=== PATIENT | male | born 1980 | race Caucasian/White ===

== ENCOUNTER 2023-02-04 19:52 | Inpatient (IN) | payer OTHER, SELFPAY ==
[2023-02-04 20:53] VITALS: BMI 35.0
--- NOTE | 2023-02-04 21:43 | PC.NURSE ---
Pt submitted a Three Day Notice on Tuesday02/04/2023 up on Tuesday02/09/2023.
[2023-02-04] MEDS: oxyCODONE HCl Immed Release 5 MG TABLET PO (22:26)
[2023-02-04] MEDS: Acetaminophen 325 MG TABLET 650 MG PO (22:27)
[2023-02-04] MEDS: Nicotine Polacrilex 2 MG GUM BUCCAL (22:27)
[2023-02-04] MEDS: traZODone HCL 50 MG TABLET PO (22:31)
--- NOTE | 2023-02-05 00:18 | PC.ADMIT ---
Addendum entered by Lili Mccarthy RN 02/05/23 00:43: Patient denied any SI, HI, AH or VH at this time. Original Note: Juliette is a 42 year old Tunisian speaking single male admitted as a CV admission to at 200402/04/23 and placed on 15 minute safety checks. Patient was a transfer from [facility] where he was being treated for cellulitis and patient also reported substance use and SI with a plan to jump off a bridge. Patient has a long history of substance abuse, treatment facility admissions and [facility] admissions. Patient arrived on the unit highly agitated and said I want to punch someone . Patient said he feels some withdrawals and did not feel like answering many of the admission questions. He was given Klonopin 2 mg po with positive effect and was able to eat a snack, take night meds and go to bed. Safety tool will need to be done and legals will need to be signed. Patient did sign a 3 day notice 02/04/23 that will be up TuesdayFebruary 10. Will monitor for patient for withdrawals.
[2023-02-05 07:28] LABS: Alanine Aminotransferase 31 U/L (0-40); Albumin Level 3.4 g/dL (3.5-5.0); Alkaline Phosphatase 68 U/L (39-117); Anion Gap 14 (12-20); Aspartate Amino Transferase 35 U/L (5-37); Bilirubin Total 0.3 mg/dL (0.0-1.0); Blood Urea Nitrogen 10 mg/dL (9-16); Calcium 8.6 mg/dL (8.4-10.2); Carbon Dioxide 21 mmol/L (22-29); Chloride 110 mmol/L (96-108); Cholesterol 157 mg/dL; Creatinine Clr Calc Pharmacy 142.4; Estimated Glomerular Filt Rate > 60; Glucose Fasting 110 mg/dL (60-99); HDL Cholesterol 23 mg/dL; LDL Cholesterol Calculated 90 mg/dl; Potassium 4.1 mmol/L (3.3-5.1); Sodium 141 mmol/L (135-145); Triglycerides 223 mg/dL
[2023-02-05] MEDS: clonazePAM 1 MG TABLET 2 MG PO (08:43)
[2023-02-05] MEDS: Buprenorphine/Naloxone 8/2 mg TAB.SUBL 1 TAB SUBLINGUAL (08:43)
[2023-02-05] MEDS: buPROPion HCl XL 300 MG TAB.ER.24H PO (08:43)
[2023-02-05] MEDS: Gabapentin 400 MG CAPSULE 800 MG PO ×2 (08:43→16:18)
[2023-02-05 08:47] VITALS: BP 193/102; PULSE 77; RESP 14; TEMP 36.6; O2SAT 98
--- NOTE | 2023-02-05 09:04 | P.HPPS_ITS ---
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 He denies having been here before. He has history of IV drug use, primarily cocaine but also has opiate use disorder, alcohol use disorder and possible mood disorder. He tested positive for buprenorphine, fentanyl, barbit urates and benzodiazepines and cocaine. He had gone to the emergency room stating that if he was not hospitalize he would go out and kill himself by jumping off of a bridge. He denies any previous actual self-harm. He was asking to be discharged, stating that I ?set some shit just to get in?. He was not cooperative and answered very briefly to questions with no elaboration. He was not belligerent. He is on Wellbutrin 150 mg b.i.d., Bupronorphine 8 mg was started 2 days ago. He is on gabapentin 800 mg t.i.d.. He was getting Sublocade 300 mg monthly and was overdue about a week. He was recently treated at [facility] for cellulitis of both upper extremities and was discharged after treatment on doxycycline which he received for 10 days. He is connected to be a chin and had been receiving his injections through them. Previously he has been on several SSRIs and has found them not to be helpful but could not give me any details Past Psychiatric History: According to Fei he has had possibly 15 prior hospitalizations. No extended periods of being substance free. Medical Evaluation Reviewed: Hospitalist Cara Pending [facility] Narrative: He has history of hepatitis C-on treated, recent bilateral upper arm cellulitis- treated. Family History: Unknown Social History: He was not willing to give much information but did state that his parents are together and live locally. He is the only child. He has had no marriages and has a 12-year-old who lives with his mother. He is currently homeless and claims to be employed at a [employer] in the warehouse. Substance History: Cocaine, opiates, alcohol Trauma History: Unknown Diagnostics Vital Signs (24Hr): Vital Signs - 24 hr 02/05/23 08:47 Temperature 98 F Pulse Rate 77 Respiratory Rate 14 Blood Pressure 193/102 H Pulse Oximetry 98 Oxygen Delivery Method Room Air BMI result Body Mass Index 35.0 Labs 02/05/23 06:40 Labs: Laboratory Results - last 48 hr 02/05/23 06:40 Sodium 141 Potassium 4.1 Chloride 110 H Carbon Dioxide 21 L Anion Gap 14 BUN 10 Creatinine 0.80 Estim Creat Clear Calc 142.4 Estimated GFR > 60 Fasting Glucose 110 H Calcium 8.6 Total Bilirubin 0.3 AST 35 ALT 31 Alkaline Phosphatase 68 Total Protein 6.0 L Albumin 3.4 L Triglycerides 223 Cholesterol 157 LDL Cholesterol, Calc 90 HDL Cholesterol 23 Meds/Allergies Meds Home Medications Medication Instructions Recorded Confirmed Type buprenorphine 8 mg-naloxone 2 mg 1 tab sublingual BID 02/04/23 02/04/23 History sublingual tablet bupropion HCl 150 mg tablet,12 hr 150 mg PO BID 02/04/23 02/04/23 History sustained-release gabapentin 800 mg tablet 800 mg PO TID 02/04/23 02/04/23 History nicotine (polacrilex) 2 mg gum 2 mg buccal Q2H 02/04/23 02/04/23 History nicotine 21 mg/24 hr daily 1 patch transdermal DAILY 02/04/23 02/04/23 History transdermal patch nicotine 21 mg/24 hr daily 1 patch transdermal DAILY 02/04/23 02/04/23 History transdermal patch oxycodone 5 mg tablet 5 mg PO Q4H PRN Pain, Moderate 02/04/23 02/04/23 History Allergies Allergies Allergy/AdvReac Type Severity Reaction Status Date / Time No Known Allergies Allergy Verified 02/04/23 20:54 Mental Status Exam Mental Status Exam Narrative: Fei was seen the morning after his admission. He is alert, oriented and minimally cooperative. He was not willing to give much information about himself or elaborate. Information is mostly available through the [facility] notes and crisis evaluation. Speech is normal. No eye contact. Affect is appropriate and irritable but in control. He was not belligerent but was not very cooperative either. No signs of psychosis. He denies any SI/HI. Cognitively appears to be grossly intact and could not be tested judgment is intact. Assessment & Plan Assessment & Plan (1) Major depress, sev w/ psych: Status: Acute Code(s): F32.3 - Major depressive disorder, single episode, severe with psychotic features (2) Cocaine abuse: Status: Acute Code(s): F14.10 - Cocaine abuse, uncomplicated (3) Opiate abuse, episodic: Status: Acute Code(s): F11.10 - Opioid abuse, uncomplicated Plan 02/05 : Fei meets criteria for hospital level of care for safety. Current medications were continued. Request for discharge was denied. Contacts to be made with his treaters next week. Patient educated on: diagnosis, medication risk/benefits and substance abuse Reason for continued inpatient stay Substantial Risk for: harm to self Statement Statement: I have reviewed the history and physical and performed a pertinent examination on my patient. No changes have occurred unless specified. If the History and Physical was not performed prior to admission, the Hospitalist's service will be consulted for completing the admission physical. Time Spent With Patient Time: Total time managing care of this patient today ____ minutes.
[2023-02-05] MEDS: Nicotine Polacrilex 2 MG GUM BUCCAL ×2 (09:54→13:13)
[2023-02-05] MEDS: LORazepam 1 MG TABLET 0.5 MG PO (11:34)
--- NOTE | 2023-02-05 12:06 | P.CONHOSP_ITS ---
History of Present Illness Data of Consult Service Date: 02/05/23 Primary Care Provider: None Physician HPI Reason for consult: Admission H&P Pt is a 42-year-old male with a PMH significant for?polysubstance abuse, IV drug use (primarily cocaine), recurrent cellulitis/abscess formation at injection sites, and hepatitis C who is admitted to [facility] psychiatry unit for increased depression, anxiety, and SI with a plan to jump off a bridge. Medical consult for admission H&P. Pt with a long history of 15+ prior psychiatric hospitalizations. Pt was recently admitted at [facility] from 01/26 to 01/27 for cellulitis of both upper extremities and left lower leg at IV drug injection sites. Was sent home on a 10-day course of doxycycline for which he was noncompliant. Presented again to [facility] on 02/02 with recurrent cellulitis at same sites. Was belligerent, threatening to kill himself if he was not admitted. Started on vanco and ceftriaxone with surgical consult that found induration without fluctuance or abscess formation. Today pt begins interview by demanding to be released from the psych unit since he does not belong here: I'm only here because I said some stuff I didn't mean while I was drunk. Pt complains of l ingering pain and warmth of upper forearms bilaterally and left calf, located at areas where he injects cocaine. Also complains of hand swelling the past 1-2 months. Denies fever, chills, nausea, vomiting, diarrhea. Pt also states he has not had a bowel movement for over a week. Review of Systems Review of Systems: Forearm erythema and warmth Hand swelling No fever, chills, nausea, vomiting Yes all other systems are reviewed and are negative PMFSH Social History Household Members: None Housing: Homeless Do you presently have visiting nurse or other home services: No Unable to assess alcohol history related to: Refusing to respond Patient Tobacco Use Status: Current everyday Tobacco user Tobacco use type: Cigarette Cigarette Packs Per Day: 1 Cigarettes Per Day: 20.0 Smoked in Last 30 Days: Yes Patient Interested in Nicotine Replacement: Yes Patient Given Instructions on How to Stop Smoking: No (pt not ready to quit) Second Hand Smoke Exposure: Yes Use of substances other than those prescribed or required for medical reasons: Refusing to respond Substance Use Type: Crack/Cocaine and Opiates Substance Use Frequency: Chronic Longstanding Last Used Substance: Just Prior to Admission Currently Displaying Signs/Symptoms of Drug Intoxication Withdrawal: No Any prior treatment program specific to substance use: Yes Spiritual Healthcare Practices: none Christianity Healthcare Practices: none Cultural Healthcare Practices: none Advance Directives: No Advance Directives Information Provided: No Do you have thoughts of harming others: None Do you have a plan to hurt others: No Plan Recently lost weight without trying: No Eating poorly because of decreased appetite: No Nutrition Risks: No Nutritional Risk Poor oral hygiene: No Meds Allergies Allergy/AdvReac Type Severity Reaction Status Date / Time No Known Allergies Allergy Verified 02/04/23 20:54 Active Medications: Current Medications Acetaminophen (Acetaminophen 325 Mg Tablet) 650 mg PO Q6H PRN PRN Reason: Headache/Pain Mild Scale (1-3) Last Admin: 02/04/23 22:27 Dose: 650 mg Al Hydroxide/Mg Hydroxide (Magnesium Hydrox/Alum Hydrox 30 Ml Oral.Susp) 30 ml PO Q6H PRN PRN Reason: Heartburn/Nausea Buprenorphine/Naloxone (Buprenorphine/Naloxone 8/2 Mg Tab.Subl) 1 tab SUBLINGUAL BID [facility] Last Admin: 02/05/23 08:43 Dose: 1 tab Bupropion HCl (Bupropion Hcl Xl 300 Mg Tab.Er.24h) 300 mg PO DAILY [facility] Last Admin: 02/05/23 08:43 Dose: 300 mg Clonazepam (Clonazepam 1 Mg Tablet) 2 mg PO BID PRN PRN Reason: agitation Last Admin: 02/05/23 08:43 Dose: 2 mg Gabapentin (Gabapentin 400 Mg Capsule) 800 mg PO TID [facility] Last Admin: 02/05/23 08:43 Dose: 800 mg Hydroxyzine HCl (Hydroxyzine Hcl 25 Mg Tablet) 25 mg PO Q6H PRN PRN Reason: Anxiety Lorazepam (Lorazepam 1 Mg Tablet) 1 mg PO Q4H PRN; Taper PRN Reason: Alcohol Withdrawal Stop: 02/08/23 20:51 Last Admin: 02/05/23 11:34 Dose: 1 mg Magnesium Hydroxide (Milk Of Magnesia 30 Ml Oral.Susp) 30 ml PO DAILY PRN PRN Reason: Constipation Nicotine (Nicotine 21 Mg Patch.Td24) 21 mg TRANSDERMA DAILY [facility] Last Admin: 02/05/23 10:07 Dose: Not Given Nicotine Polacrilex (Nicotine Polacrilex 2 Mg Gum) 2 mg BUCCAL Q2H PRN PRN Reason: Nicotine Cravings Last Admin: 02/05/23 09:54 Dose: 2 mg Oxycodone HCl (Oxycodone Hcl Immed Release 5 Mg Tablet) 5 mg PO Q4H PRN PRN Reason: Pain, Moderate Last Admin: 02/05/23 10:34 Dose: 5 mg Trazodone HCl (Trazodone Hcl 50 Mg Tablet) 50 mg PO BEDTIME MRX1 PRN PRN Reason: Insomnia Last Admin: 02/04/23 22:31 Dose: 50 mg Home Medications Medication Instructions Recorded Confirmed Last Taken Type buprenorphine 8 mg-naloxone 2 mg 1 tab sublingual BID 02/04/23 02/04/23 02/04/23 08:42 History sublingual tablet bupropion HCl 150 mg tablet,12 hr 150 mg PO BID 02/04/23 02/04/23 02/04/23 11:38 History sustained-release 150 mg gabapentin 800 mg tablet 800 mg PO TID 02/04/23 02/04/23 02/04/23 08:42 History 800 mg nicotine (polacrilex) 2 mg gum 2 mg buccal Q2H 02/04/23 02/04/23 02/04/23 15:17 History 2 mg nicotine 21 mg/24 hr daily 1 patch transdermal DAILY 02/04/23 02/04/23 02/04/23 08:41 History transdermal patch nicotine 21 mg/24 hr daily 1 patch transdermal DAILY 02/04/23 02/04/23 02/04/23 08:41 History transdermal patch oxycodone 5 mg tablet 5 mg PO Q4H PRN Pain, Moderate 02/04/23 02/04/23 02/03/23 20:55 History Physical Exam Vital Signs and Narrative: Vital Signs: Last Vital Signs Temp 98 F 02/05/23 08:47 Pulse 77 02/05/23 08:47 Resp 14 02/05/23 08:47 BP 193/102 H 02/05/23 08:47 Pulse Ox 98 02/05/23 08:47 O2 Del Method Room Air 02/05/23 08:47 BMI result Body Mass Index 35.0 Constitutional: Alert, mostly cooperative, in no acute distress. Mental Status: Oriented to person, place and time. Eyes: Pupils are equal, round, and reactive to light. Ear, Nose, and Throat: Oropharynx clear, mucous membranes moist. Ears and nose without deformities. Trachea midline. Respiratory: Clear to auscultation bilaterally. No wheezing, rales, or rhonchi. Cardiovascular: S1, S2 regular. No murmurs, rubs, or gallops. Gastrointestinal: Abdomen soft, non-tender, non-distended. Normal bowel sounds. Neurologic: Cranial nerves II-XII are grossly intact bilaterally. No focal neurological deficits. Moves all extremities spontaneously. Skin: Area of erythema and warmth on right upper forearm with 3 cm area of induration, no fluctuance noted. Small area of induration and erythema on left upper forearm, no fluctuance noted. Please see pictures below. Area on left calf previously markered at [facility] no longer erythematous or warm to the touch. Musculoskeletal: No cyanosis or clubbing. Extremities: Mild swelling of hands, left more than right. Psychiatric: Mostly cooperative, makes minimal eye contact, demanding to be released from psych unit. Results Labs 02/05/23 06:40 Labs: Laboratory Results - last 24 hr 02/05/23 06:40 Anion Gap 14 Estim Creat Clear Calc 142.4 Estimated GFR > 60 Fasting Glucose 110 H Calcium 8.6 Total Bilirubin 0.3 AST 35 ALT 31 Alkaline Phosphatase 68 Total Protein 6.0 L Albumin 3.4 L Triglycerides 223 Cholesterol 157 LDL Cholesterol, Calc 90 HDL Cholesterol 23 Assessment and Plan (1) Routine history and physical examination of adult: Status: Acute (2) Cellulitis of forearm, left: Status: Acute (3) Cellulitis of forearm, right: Status: Acute Plan Pt is a 42-year-old male with a PMH significant for?polysubstance abuse, IV drug use (primarily cocaine), recurrent cellulitis/abscess formation at injection sites, and hepatitis C who is admitted to psychiatry unit for increased depression, anxiety, and SI with a plan to jump off a bridge. Medical consult for admission H&P. Mood disorder Plan as per psychiatry Cellulitis of upper forearms Pt with a history of recurrent cellulitis at cocaine injection sites, most recently seen at [facility] on 01/26/2023 and again on 02/02/2023 Pt received an ultrasound of bilateral upper extremities at [facility] which was negative for abscess or VTE Pt's upper extremities evaluated at [facility] by General surgery who found no indication for I&D: induration but no fluctuance or abscess formation Pt has likely been non-compliant with home abx Current exam reveals induration but no fluctuance or sign of abscess formation Doxycycline 100 mg bid x5 days, begun 02/05/2023 Constipation Pt claims he has not had a bowel movement in over a week Colace, Miralax prn Thank you for allowing us to participate in the care of this patient. Signing off at this time. Please let us know if there are any acute complaints or questions. Time Spent With Patient Time: Total time managing care of this patient today ____ minutes.
[2023-02-05] MEDS: hydrOXYzine HCL 25 MG TABLET PO (13:14)
[2023-02-05] MEDS: Doxycycline Monohydrate 100 MG CAPSULE PO (16:18)
[2023-02-06] MEDS: Gabapentin 400 MG CAPSULE 800 MG PO ×4 (03:14→19:38)
[2023-02-06] MEDS: Nicotine Polacrilex 2 MG GUM BUCCAL ×4 (03:15→21:00)
[2023-02-06 08:00] VITALS: PULSE 80
[2023-02-06] MEDS: buPROPion HCL 75 MG TABLET 150 MG PO ×3 (08:33→19:36)
[2023-02-06] MEDS: Doxycycline Monohydrate 100 MG CAPSULE PO ×2 (08:34→19:38)
[2023-02-06] MEDS: clonazePAM 1 MG TABLET 2 MG PO ×3 (08:34→22:48)
[2023-02-06 08:44] VITALS: BP 138/77; PULSE 80; RESP 14; TEMP 36.9
--- NOTE | 2023-02-06 09:39 | P.PNPSI_ITS ---
Subjective Subjective Date of Service: 02/06/23 Reason For Visit: F11.20 F14.20 F32.2 Subjective Notes: Conditional Voluntary and 3 Day Healthcare Proxy: No Guardianship: No Medical Problems Affecting Mental Status: No Interim History: Patient was seen and discussed in rounds today. Records and plans were reviewed. He is doing better and continues to request for discharge and has put in a 3 day notice. He has been medication compliant. Denies any side effects. He is worried about his medications upon discharge which I discussed with him and I did state that I am not sure whether he is going to be discharged on Klonopin which she has been taking for a while but also I did do not think he can be detox in 2 or 3 days! Eating and sleeping adequately. He has been pleasant and cooperative. No changes were made today. He was seen by the hospitalist yesterday and placed on antibiotics for his arm cellulitis. Medication Compliance: Yes Side effects from medications: No Attending Groups: Intermittent Review of Systems Review of Systems Cellulitis of both upper arms Yes all other systems are reviewed and are negative Mental Status Exam Mental Status Exam Narrative: In today's visit he is alert, oriented and pleasant. Normal speech. Better eye contact. Affect is appropriate and varied. No acute signs of depression, anxiety or psychosis. No SI upon inquiry. Cognitively is intact. Judgment is intact Diagnostics Vital Signs (24Hr): Vital Signs - 24 hr 02/06/23 08:44 Temperature 98.4 F Pulse Rate 80 Respiratory Rate 14 Blood Pressure 138/77 BMI result Body Mass Index 35.0 Labs 02/05/23 06:40 Labs: Laboratory Results - last 48 hr 02/05/23 06:40 Sodium 141 Potassium 4.1 Chloride 110 H Carbon Dioxide 21 L Anion Gap 14 BUN 10 Creatinine 0.80 Estim Creat Clear Calc 142.4 Estimated GFR > 60 Fasting Glucose 110 H Calcium 8.6 Total Bilirubin 0.3 AST 35 ALT 31 Alkaline Phosphatase 68 Total Protein 6.0 L Albumin 3.4 L Triglycerides 223 Cholesterol 157 LDL Cholesterol, Calc 90 HDL Cholesterol 23 Medications Medications Current Medications Acetaminophen (Acetaminophen 325 Mg Tablet) 650 mg PO Q6H PRN PRN Reason: Headache/Pain Mild Scale (1-3) Last Admin: 02/04/23 22:27 Dose: 650 mg Al Hydroxide/Mg Hydroxide (Magnesium Hydrox/Alum Hydrox 30 Ml Oral.Susp) 30 ml PO Q6H PRN PRN Reason: Heartburn/Nausea Buprenorphine/Naloxone (Buprenorphine/Naloxone 8/2 Mg Tab.Subl) 1 tab SUBLINGUAL BID [facility] Last Admin: 02/06/23 09:01 Dose: Not Given Bupropion HCl (Bupropion Hcl 75 Mg Tablet) 150 mg PO BID [facility] Last Admin: 02/06/23 08:33 Dose: 150 mg Clonazepam (Clonazepam 1 Mg Tablet) 2 mg PO BID PRN PRN Reason: agitation Last Admin: 02/06/23 08:34 Dose: 2 mg Doxycycline Monohydrate (Doxycycline Monohydrate 100 Mg Capsule) 100 mg PO Q12H [facility] Last Admin: 02/06/23 08:34 Dose: 100 mg Gabapentin (Gabapentin 400 Mg Capsule) 800 mg PO TID [facility] Last Admin: 02/06/23 08:33 Dose: 800 mg Hydroxyzine HCl (Hydroxyzine Hcl 25 Mg Tablet) 25 mg PO Q6H PRN PRN Reason: Anxiety Last Admin: 02/05/23 13:14 Dose: 25 mg Lorazepam (Lorazepam 1 Mg Tablet) 1 mg PO Q6H PRN; Taper PRN Reason: Alcohol Withdrawal Stop: 02/08/23 20:51 Last Admin: 02/05/23 11:34 Dose: 1 mg Magnesium Hydroxide (Milk Of Magnesia 30 Ml Oral.Susp) 30 ml PO DAILY PRN PRN Reason: Constipation Nicotine (Nicotine 21 Mg Patch.Td24) 21 mg TRANSDERMA DAILY [facility] Last Admin: 02/06/23 09:07 Dose: Not Given Nicotine Polacrilex (Nicotine Polacrilex 2 Mg Gum) 2 mg BUCCAL Q2H PRN PRN Reason: Nicotine Cravings Last Admin: 02/06/23 08:34 Dose: 2 mg Oxycodone HCl (Oxycodone Hcl Immed Release 5 Mg Tablet) 5 mg PO Q4H PRN PRN Reason: Pain, Moderate Last Admin: 02/04/23 22:26 Dose: 5 mg Trazodone HCl (Trazodone Hcl 50 Mg Tablet) 50 mg PO BEDTIME MRX1 PRN PRN Reason: Insomnia Last Admin: 02/04/23 22:31 Dose: 50 mg Allergies Allergies Allergy/AdvReac Type Severity Reaction Status Date / Time No Known Allergies Allergy Verified 02/04/23 20:54 Assessment & Plan Assessment & Plan (1) Routine history and physical examination of adult: Status: Acute Code(s): Z00.00 - Encounter for general adult medical examination without abnormal findings (2) Cellulitis of forearm, left: Status: Acute Code(s): L03.114 - Cellulitis of left upper limb (3) Cellulitis of forearm, right: Status: Acute Code(s): L03.113 - Cellulitis of right upper limb Plan Pt is a 42-year-old male with a PMH significant for?polysubstance abuse, IV drug use (primarily cocaine), recurrent cellulitis/abscess formation at injection sites, and hepatitis C who is admitted to [facility] psychiatry unit for increased depression, anxiety, and SI with a plan to jump off a bridge. Medical consult for admission H&P. Mood disorder Plan as per psychiatry Cellulitis of upper forearms Pt with a history of recurrent cellulitis at cocaine injection sites, most recently seen at [facility] on 01/26/2023 and again on 02/02/2023 Pt received an ultrasound of bilateral upper extremities at [facility] which was negative for abscess or VTE Pt's upper extremities evaluated at [facility] by General surgery who found no indication for I&D: induration but no fluctuance or abscess formation Pt has likely been non-compliant with home abx Current exam reveals induration but no fluctuance or sign of abscess formation Doxycycline 100 mg bid x5 days, begun 02/05/2023 Constipation Pt claims he has not had a bowel movement in over a week Colace, Miralax prn Thank you for allowing us to participate in the care of this patient. Signing o ff at this time. Please let us know if there are any acute complaints or questions. 02/06: Continue current regimen and plans. He is eager to be discharged early this week. Reason for continued inpatient stay Substantial Risk for: harm to self Time Spent With Patient Time: Total time managing care of this patient today ____ minutes.
[2023-02-06] MEDS: hydrOXYzine HCL 25 MG TABLET PO (13:08)
--- NOTE | 2023-02-06 13:15 | PC.NURSE ---
PT continues to be agitated regarding his stay here at the hospital and requested to take his second dose of Klonopin early. PT continues to be verbally assaultive to staff.
[2023-02-06 17:13] VITALS: BP 184/92; PULSE 71; TEMP 36.1; O2SAT 99
[2023-02-06] MEDS: oxyCODONE HCl Immed Release 5 MG TABLET PO (17:22)
[2023-02-06] MEDS: Buprenorphine/Naloxone 8/2 mg TAB.SUBL 1 TAB SUBLINGUAL (19:39)
[2023-02-06] MEDS: traZODone HCL 50 MG TABLET PO (20:58)
[2023-02-06 22:00] VITALS: BP 146/70; PULSE 83; TEMP 36
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
[2023-02-07] MEDS: clonazePAM 1 MG TABLET 2 MG PO (07:58)
[2023-02-07] MEDS: buPROPion HCL 75 MG TABLET 150 MG PO ×2 (07:58→11:26)
[2023-02-07] MEDS: Doxycycline Monohydrate 100 MG CAPSULE PO (07:59)
[2023-02-07 08:00] VITALS: PULSE 80
[2023-02-07 08:02] VITALS: BP 141/83; PULSE 87; RESP 16; TEMP 36.6; O2SAT 99
[2023-02-07] MEDS: Gabapentin 400 MG CAPSULE 800 MG PO (09:32)
[2023-02-07] MEDS: Amoxicillin/Potassium Clav 875 MG TABLET PO (11:26)
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
[2023-02-07] MEDS: oxyCODONE HCl Immed Release 5 MG TABLET PO (12:27)
--- NOTE | 2023-02-11 15:59 | PC.NURSE ---
Pt was given 2mg of Ativan on 02/05/23 at 1600. Medication administration documentation was not entered on the given date. However, this is a late entry to that effect.
== END 2023-02-07 12:33 | disposition home or self-care (01) | DRG 751 ==
PROVIDERS: Psychiatry & Neurology Psychiatry; Admitting Provider Psychiatry & Neurology Psychiatry; Visit Provider Psychiatry & Neurology Psychiatry
DX: F33.1 Major depressive disorder, recurrent, moderate (principal); R45.851 Suicidal ideations; Z91.148 Patient's other noncompliance with medication regimen for other reason; F11.20 Opioid dependence, uncomplicated; K59.00 Constipation, unspecified; F19.10 Other psychoactive substance abuse, uncomplicated; L03.114 Cellulitis of left upper limb; L03.113 Cellulitis of right upper limb; F14.10 Cocaine abuse, uncomplicated; F17.210 Nicotine dependence, cigarettes, uncomplicated; Z71.6 Tobacco abuse counseling; Z79.899 Other long term (current) drug therapy
CPT/HCPCS: 36415; 80053; 80061

== ENCOUNTER 2023-02-28 09:04 | Emergency (ER) | payer MEDICAID, SELFPAY ==
[2023-02-28 09:08] VITALS: BP 111/53; PULSE 68; RESP 18; TEMP 35.8; O2SAT 98; BMI 32.1
--- NOTE | 2023-02-28 09:38 | ED_ITS ---
HPI - General Adult General Chief complaint: Psychiatric Symptoms Stated complaint: Crisis Time Seen by Provider: 02/28/23 09:37 Source: patient Mode of arrival: ambulatory Limitations: no limitations History of Present Illness HPI narrative: Patient is a 42 year old assigned male at with a history of cocaine abuse and MDD presenting to the emergency department today with suicidal ideation. Patient states that he wants to kill himself and has a plan to do so by hanging himself or overdosing. Patient denies any dizziness, lightheadedness, abdominal pain, nausea, vomiting, fever, chills, blurry vision, double vision, loss of vision, chest pain, difficulty breathing, shortness of breath, back pain, night sweats, pain with urination, increased urinary frequency, increased urinary urgency, blood in his urine or stool, syncope or a near syncopal episode, recent trauma or falls, bowel incontinence, bladder incontinence, bowel retention, bladder retention, or any other complaints at this time. Relieving factors: none Exacerbating factors: none Associated symptoms: denies other symptoms Treatments prior to arrival: none Related Data Home Medications Medication Instructions Recorded Confirmed No Known Home Meds 02/28/23 02/28/23 Allergies Allergy/AdvReac Type Severity Reaction Status Date / Time No Known Allergies Allergy Verified 02/04/23 20:54 Review of Systems Constitutional: Constitutional: Reports no additional constitutional complaints, Denies chills, Denies fever(s) and Denies night sweats Eyes: Eyes: Reports no additional eye complaints, Denies blurry vision, Denies change in vision, Denies diplopia, Denies eye discharge, Denies loss of vision and Denies eye pain ENT: Denies dizziness Cardiovascular: Cardiovascular: Reports no additional cardiovascular complaints, Denies chest pain, Denies lightheadedness, Denies Loss of Consciousness and Denies dyspnea Respiratory: Respiratory: Reports no additional respiratory complaints and Denies dyspnea Gastrointestinal: Gastrointestinal: Reports no additional gastrointestinal complaints, Denies abdominal pain, Denies melena, Denies hematochezia, Denies change in bowel habits and Denies change in stool character Genitourinary: Genitourinary: Reports no additional male genitourinary complaints, Denies hematuria, Denies oliguria, Denies difficulty urinating, Denies dysuria, Denies urinary frequency, Denies urinary hesitancy, Denies uri nary incontinence and Denies urinary urgency Musculoskeletal: Musculoskeletal: Reports no additional musculoskeletal complaints, Denies numbness and Denies tingling Neurologic: Denies dizziness, Denies loss of vision, Denies numbness and Denies tingling Psychiatric: Psychiatric: Denies homicidal ideation and Reports suicidal ideation Endocrine: Endocrine: Reports no additional endocrine complaints Hematologic/Lymphatic: Hematologic/Lymphatic: Reports no additional hematologic/lymphatic complaints Allergic/Immunologic: Allergic/Immunologic: Reports no additional allergic/immunologic complaints PMFSH Past Medical History Attestation statement: The following information was validated with the patient. Source: old records reviewed and nursing notes reviewed Medical History Cocaine abuse Depression ETOH abuse Social History Social History Household Members: None Housing: Homeless Do you presently have visiting nurse or other home services: No Unable to assess alcohol history related to: Refusing to respond Alcohol intake: current Alcohol type: hard liquor Patient Tobacco Use Status: Current everyday Tobacco user Tobacco use type: Cigarette Cigarette Packs Per Day: 1 Cigarettes Per Day: 20.0 Smoked in Last 30 Days: Yes Second Hand Smoke Exposure: Yes Use of substances other than those prescribed or required for medical reasons: Yes Substance Use Type: Crack/Cocaine Advance Directives: No Advance Directives Information Provided: Yes Healthcare Proxy: No Guardian: No service: No Sexual orientation: Straight/Heterosexual Physical Exam ED Vital Signs: Vital Signs - 24 hr 02/28/23 09:08 Temperature 96.4 F L Pulse Rate 68 Respiratory Rate 18 Blood Pressure 111/53 L Pulse Oximetry 98 Oxygen Delivery Method Room Air BMI result Body Mass Index 32.1 Const General: cooperative, no acute distress, alert and awake Nutritional Appearance: well nourished Orientation/consciousness: patient oriented x3 Limitations: no limitations HENMT Head: Yes normal to inspection and Yes atraumatic Ears: hearing grossly normal bilaterally and external ears normal General nose exam: Normal external nose present, no nasal discharge noted and no epistaxis Face and sinus: Yes normal facial exam, No abrasion and No laceration Mouth: Normal oral and palatal mucosa present, no drooling and no muffled voice Eyes General: appearance normal, both eyes and all related structures Periorbital: periorbital findings normal Eyelids: Yes eyelids normal Conjunctivae: conjunctivae normal Pupils: Equal, round and reactive pupils present EOM: EOMs intact bilaterally Neck Neck: Yes normal visual inspection, Yes full ROM and Yes no lymphadenopathy Chest Chest palpation & inspection: normal inspection of the chest Resp Effort & Inspection: normal respiratory effort and able to speak in complete sentences Auscultation: clear to auscultation bilaterally Cardio Rate: regular rate Rhythm: regular rhythm GI Inspection: Yes normal to inspection Neuro General: patient oriented x3 and moves all extremities Cranial nerves: Yes Equal, round and reactive pupils present Cognition (Neuro): normal cognition Motor exam (neuro): 5/5 motor strength present throughout Sensory Exam: Normal double simultaneous stimulation for sensation Coordination: [id number] test normal Extrem General: Yes normal to inspection, Yes full ROM and Yes capillary refill normal Psych Appearance: grossly normal Mental Status: mental status grossly normal Affect: normal affect Attitude: cooperative Thought process: Normal thought process present Thought content: Normal thought content present Insight: Good insight present (Psych) Medical Decision Making Medical Decision Making MDM Narrative: Patient is a 42 year old assigned male at with a history of recent alcohol and cocaine abuse and MDD presenting to the emergency department today with suicidal ideation. Patient's physical exam was unremarkable. Patient's blood work showed elevated LFTs which is consistent with the patient's reported history of alcohol use. Patient's urine showed no acute process. Patient's EKG was unremarkable. I explained my physical exam findings as well as all test results to the patient. I answered all questions asked by the patient. Patient was evaluated by CARE team who recommended admission with dual diagnosis (psychiatric and substance use). Patient to remain in the POD until placed. Differential Diagnosis Differential Diagnoses: The differential diagnosis associated with the presentation includes substance abuse, alcohol abuse, suicidal ideation Consult Healthcare Provider Management of the patient was discussed with: Behavioral Health Provider (spoke with the CARE team as noted in the MDM portion of my note. ) Lab Data [facility] Lab Attestation statement: I reviewed the patient's lab results. 02/28/23 11:44 02/28/23 11:44 Labs: Lab Results 02/28/23 02/28/23 02/28/23 Range/Units 09:58 09:59 09:59 WBC (4.8-10.8) X10*3/uL RBC (4.60-5.80) X10*6/uL Hgb (14.0-18.0) g/dl Hct (42.0-52.0) % MCV (80.0-98.0) fL MCH (27.0-33.0) pg MCHC (31.0-36.0) g/dl RDW (11.0-16.0) % Plt Count (160-400) X10*3/uL MPV (9.4-12.4) fL Immature Gran % (Auto) (0.0-0.4) % Neut % (Auto) (45-73) % Lymph % (Auto) (20-40) % Richardson % (Auto) (2-11) % Eos % (Auto) (0-4) % Baso % (Auto) (0-2) % Lymph # (Auto) (1.2-4.9) X10*3/uL Richardson # (Auto) (0.1-1.2) X10*3/uL Eos # (Auto) (0.0-0.4) X10*3/uL Baso # (Auto) (0.0-0.2) X10*3/uL Abs Immat Gran (auto) (0.00-0.03) X10*3/uL Absolute Neuts (auto) (2.0-8.3) x10*3/uL Absolute Nucleated RBC (0.0-0.012) X10*3/uL Nucleated RBC % (auto) (0.0-0.2) /100WBC Sodium (135-145) mmol/L Potassium (3.3-5.1) mmol/L Chloride (96-108) mmol/L Carbon Dioxide (22-29) mmol/L Anion Gap (12-20) BUN (9-16) mg/dL Creatinine (0.5-1.4) mg/dL Estim Creat Clear Calc Estimated GFR Random Glucose (60-115) mg/dL Calcium (8.4-10.2) mg/dL Total Bilirubin (0.0-1.0) mg/dL AST (5-37) U/L ALT (0-40) U/L Alkaline Phosphatase (39-117) U/L Troponin I High Sens (<3.5-35.0) ng/L Total Protein (6.5-8.0) g/dL Albumin (3.5-5.0) g/dL Urine Color Dark Yellow Urine Appearance Clear Urine pH 6.0 (5.0-9.0) Ur Specific Hamilton 1.020 (1.005-1.025) Urine Protein Negative (Neg-Trace) mg/dL Urine Glucose (UA) Negative (Negative) mg/dL Urine Ketones Negative (Negative) mg/dL Urine Blood Negative (Negative) Urine Nitrite Negative (Negative) Ur Leukocyte Esterase Negative (Negative) Salicylates (15-30) mg/dL Urine Opiates Screen Not Detected (Not Detect) Urine Fentanyl Screen POSITIVE H (Not Detect) Acetaminophen (<30) mcg/mL Ur Barbiturates Screen Not Detected (Not Detect) Ur Phencyclidine Scrn Not Detected (Not Detect) Ur Amphetamines Screen Not Detected (Not Detect) U Benzodiazepines Scrn POSITIVE H (Not Detect) Urine Cocaine Screen POSITIVE H (Not Detect) U Marijuana (THC) Screen POSITIVE H (Not Detect) Ethyl Alcohol mg/dL COVID-19 (MARAL) Negative (Negative) COVID-19 Clin Com See Note 02/28/23 02/28/23 02/28/23 Range/Units 11:44 11:44 12:38 WBC 9.2 (4.8-10.8) X10*3/uL RBC 4.85 (4.60-5.80) X10*6/uL Hgb 12.9 L (14.0-18.0) g/dl Hct 39.3 L (42.0-52.0) % MCV 81.0 (80.0-98.0) fL MCH 26.6 L (27.0-33.0) pg MCHC 32.8 (31.0-36.0) g/dl RDW 13.1 (11.0-16.0) % Plt Count 188 (160-400) X10*3/uL MPV 10.9 (9.4-12.4) fL Immature Gran % (Auto) 0.2 (0.0-0.4) % Neut % (Auto) 79.9 H (45-73) % Lymph % (Auto) 11.8 L (20-40) % Richardson % (Auto) 6.7 (2-11) % Eos % (Auto) 1.1 (0-4) % Baso % (Auto) 0.3 (0-2) % Lymph # (Auto) 1.1 L (1.2-4.9) X10*3/uL Richardson # (Auto) 0.6 (0.1-1.2) X10*3/uL Eos # (Auto) 0.1 (0.0-0.4) X10*3/uL Baso # (Auto) 0.0 (0.0-0.2) X10*3/uL Abs Immat Gran (auto) 0.02 (0.00-0.03) X10*3/uL Absolute Neuts (auto) 7.3 (2.0-8.3) x10*3/uL Absolute Nucleated RBC 0.000 (0.0-0.012) X10*3/uL Nucleated RBC % (auto) 0.0 (0.0-0.2) /100WBC Sodium 137 (135-145) mmol/L Potassium 3.9 (3.3-5.1) mmol/L Chloride 103 (96-108) mmol/L Carbon Dioxide 28 (22-29) mmol/L Anion Gap 10 L (12-20) BUN 19 H (9-16) mg/dL Creatinine 0.81 (0.5-1.4) mg/dL Estim Creat Clear Calc 134.7 Estimated GFR > 60 Random Glucose 122 H (60-115) mg/dL Calcium 8.8 (8.4-10.2) mg/dL Total Bilirubin 1.2 H (0.0-1.0) mg/dL AST 93 H (5-37) U/L ALT 219 H (0-40) U/L Alkaline Phosphatase 194 H (39-117) U/L Troponin I High Sens < 2.7 (<3.5-35.0) ng/L Total Protein 7.1 (6.5-8.0) g/dL Albumin 3.7 (3.5-5.0) g/dL Urine Color Urine Appearance Urine pH (5.0-9.0) Ur Specific Hamilton (1.005-1.025) Urine Protein (Neg-Trace) mg/dL Urine Glucose (UA) (Negative) mg/dL Urine Ketones (Negative) mg/dL Urine Blood (Negative) Urine Nitrite (Negative) Ur Leukocyte Esterase (Negative) Salicylates < 5.0 L (15-30) mg/dL Urine Opiates Screen (Not Detect) Urine Fentanyl Screen (Not Detect) Acetaminophen < 17 (<30) mcg/mL Ur Barbiturates Screen (Not Detect) Ur Phencyclidine Scrn (Not Detect) Ur Amphetamines Screen (Not Detect) U Benzodiazepines Scrn (Not Detect) Urine Cocaine Screen (Not Detect) U Marijuana (THC) Screen (Not Detect) Ethyl Alcohol < 10 mg/dL COVID-19 (MARAL) (Negative) COVID-19 Clin Com Independent Interpretation I performed an independent interpretation of an: EKG Interpretation: Vent. Rate: 045 BPM ? ? Atrial Rate: 045 BPM P-R Int: 156 ms? QRS Dur: 096 ms QT Int: 492 ms ? ? ? P-R-T Axes: 072 052 036 degrees QTc Int: 425 ms ? Sinus bradycardia with sinus arrhythmia Nonspecific T wave abnormality Abnormal ECG No previous ECGs available DD/ [id number] Critical Care Time Critical Care Time Critical Care Time: Yes Total Critical Care Time: 30 Attestation: I spent 30 minutes of Critical Care Time with this patient. This does not include time spent on separately reported billable procedures. Discharge Plan Discharge Clinical Impression: Cocaine abuse, Suicidal ideation, Alcohol abuse Patient Disposition: Still a Patient Prescriptions: No Action No Known Home Meds Interventions: Alexander-Suicide Risk Severity Scale Last Done: 02/28/23 09:12
--- NOTE | 2023-02-28 09:38 | ECG_ITS ---
Test Reason : COCAINE USE Blood Pressure : / mmHG Vent. Rate : 045 BPM Atrial Rate : 045 BPM P-R Int : 156 ms QRS Dur : 096 ms QT Int : 492 ms P-R-T Axes : 072 052 036 degrees QTc Int : 425 ms Sinus bradycardia with sinus arrhythmia Nonspecific T wave abnormality Abnormal ECG No previous ECGs available Referred By: Christel Smith Electronically Signed By:Jerry Donald
[2023-02-28 10:17] LABS: Appearance Urine Clear; Color Urine Dark Yellow; Glucose Urine UA Negative (Negative); Leukocyte Esterase Urine Negative (Negative); Nitrite Urine Negative (Negative); Urine Blood Negative (Negative); Urine Ketones Negative (Negative); Urine Protein Negative (Neg-Trace)
[2023-02-28 10:24] LABS: Amphetamine Screen Urine Not Detected (Not Detect); Barbiturates, Urine Not Detected (Not Detect); Benzodiazepines Screen Urine POSITIVE (Not Detect); Cannabinoid Screen Urine POSITIVE (Not Detect); Cocaine Screen Urine POSITIVE (Not Detect); Fentanyl, urine POSITIVE (Not Detect); Opiate Screen Urine Not Detected (Not Detect); Phencyclidine Screen Urine Not Detected (Not Detect)
[2023-02-28 10:27] LABS: COVID-19 Test Negative (Negative); IDNOW Serial# BCCEAD1C
[2023-02-28 11:54] LABS: MANUAL DIFF FLAG NO
[2023-02-28 11:58] LABS: Basophils Percent Auto 0.3 % (0-2); Eosinophils Absolute Auto 0.1 X10*3/uL (0.0-0.4); Eosinophils Percent Auto 1.1 % (0-4); Hematocrit 39.3 % (42.0-52.0); Hemoglobin 12.9 g/dl (14.0-18.0); Imm Gran Abs Auto 0.02 X10*3/uL (0.00-0.03); Imm Gran Pct Auto 0.2 % (0.0-0.4); Lymphocytes Absolute Auto 1.1 X10*3/uL (1.2-4.9); Lymphocytes Percent Auto 11.8 % (20-40); Mean Corpuscular HGB Conc 32.8 g/dl (31.0-36.0); Mean Corpuscular Hemoglobin 26.6 pg (27.0-33.0); Mean Platelet Volume 10.9 fL (9.4-12.4); Monocytes Absolute Auto 0.6 X10*3/uL (0.1-1.2); Monocytes Percent Auto 6.7 % (2-11); Neutrophils Absolute Auto 7.3 x10*3/uL (2.0-8.3); Neutrophils Percent Auto 79.9 % (45-73); Platelet Count 188 X10*3/uL (160-400); Red Blood Count 4.85 X10*6/uL (4.60-5.80); Red Cell Distribution Width 13.1 % (11.0-16.0); White Blood Count 9.2 X10*3/uL (4.8-10.8)
[2023-02-28 12:25] LABS: Acetaminophen LAB < 17 mcg/mL (<30); Alanine Aminotransferase 219 U/L (0-40); Albumin Level 3.7 g/dL (3.5-5.0); Alkaline Phosphatase 194 U/L (39-117); Anion Gap 10 (12-20); Aspartate Amino Transferase 93 U/L (5-37); Bilirubin Total 1.2 mg/dL (0.0-1.0); Blood Urea Nitrogen 19 mg/dL (9-16); Calcium 8.8 mg/dL (8.4-10.2); Carbon Dioxide 28 mmol/L (22-29); Chloride 103 mmol/L (96-108); Creatinine Clr Calc Pharmacy 134.7; Estimated Glomerular Filt Rate > 60; Ethanol < 10 mg/dL; Glucose Random 122 mg/dL (60-115); Potassium 3.9 mmol/L (3.3-5.1); Salicylate < 5.0 mg/dL (15-30); Sodium 137 mmol/L (135-145); Total Protein 7.1 g/dL (6.5-8.0)
[2023-02-28 13:09] LABS: Troponin-I High Sensitivity < 2.7 ng/L (<3.5-35.0)
--- NOTE | 2023-02-28 15:03 | MHC.CARE ---
patient is an inpatient dual dx bed search at this time.
--- NOTE | 2023-02-28 17:06 | MHC.CARE ---
T/W called the four locations that offer a dual bed and non of them had an opening for a male. Dual dx bed search will resume tomorrow.
[2023-02-28 21:49] VITALS: BP 101/58; PULSE 70; RESP 18; TEMP 36.2; O2SAT 96
--- NOTE | 2023-03-01 05:39 | PC.NURSE ---
Patient slept through the night, no distress observed/reported, med rec completed/approved, behavior non concerning, disposition per care team is voluntary dual diagnosis bed search, VSS, will continue to monitor,
[2023-03-01 06:26] VITALS: BP 128/78; PULSE 53; RESP 17; TEMP 36.6; O2SAT 100
[2023-03-01] MEDS: buPROPion HCl XL 300 MG TAB.ER.24H PO (08:54)
[2023-03-01] MEDS: hydrOXYzine HCL 50 MG TABLET PO (08:54)
[2023-03-01] MEDS: Gabapentin 400 MG CAPSULE 800 MG PO ×2 (08:54→14:51)
--- NOTE | 2023-03-01 10:27 | MHC.CARE ---
Steve Hogue at [facility] - pt is accepted to [facility]. ETA is 1pm. Accepting is Dr. Patric Amanda. Address: [facility] [place] [address], [place] [address]. This music writer notified the CARE team who will complete the Section 12. ED clerical secretary was notified of acceptance & ETA to book transport. ED nurse will pass on message that he was accepted to pod RN. Confirmed w/ pod nurse that she is aware of his acceptance.
--- NOTE | 2023-03-01 11:50 | MHC.CARE ---
Section 12 and ED worksheet submitted to ED [employer] for transport to [facility] for a 1300 arrival time.
[2023-03-01] MEDS: Nicotine Polacrilex 2 MG GUM BUCCAL (13:26)
== END 2023-03-01 15:17 | disposition other institution (70) ==
PROVIDERS: Physician Assistant Medical; Emergency Provider Student in an Organized Health Care Education/Training Program
DX: F14.188 Cocaine abuse with other cocaine-induced disorder (principal); R45.851 Suicidal ideations; F10.10 Alcohol abuse, uncomplicated; Y90.0 Blood alcohol level of less than 20 mg/100 ml; Z20.822 Contact with and (suspected) exposure to COVID-19; Z20.828 Contact with and (suspected) exposure to other viral communicable diseases; Z79.899 Other long term (current) drug therapy; F17.210 Nicotine dependence, cigarettes, uncomplicated; Z71.6 Tobacco abuse counseling; Z71.51 Drug abuse counseling and surveillance of drug abuser
CPT/HCPCS: 36415; 80053; 80143; 80179; 80307; 81003; 84484; 85025; 87635; 93005; 99285; S9485

== ENCOUNTER 2023-05-24 11:07 | Outpatient (REF) | payer MEDICAID, SELFPAY ==
[2023-05-24 13:42] LABS: MANUAL DIFF FLAG NO
[2023-05-24 14:00] LABS: Eosinophils Absolute Auto 0.1 X10*3/uL (0.0-0.4); Eosinophils Percent Auto 4.7 % (0-4); Immature Retic Fraction 5.8 % (2.3-13.4); Lymphocytes Absolute Auto 1.1 X10*3/uL (1.2-4.9); Lymphocytes Percent Auto 35.9 % (20-40); Mean Corpuscular HGB Conc 32.5 g/dl (31.0-36.0); Mean Corpuscular Hemoglobin 27.7 pg (27.0-33.0); Mean Corpuscular Volume 85.1 fL (80.0-98.0); Mean Platelet Volume 11.2 fL (9.4-12.4); Monocytes Absolute Auto 0.3 X10*3/uL (0.1-1.2); Monocytes Percent Auto 9.4 % (2-11); Neutrophils Absolute Auto 1.5 x10*3/uL (2.0-8.3); Platelet Count 168 X10*3/uL (160-400); Red Cell Distribution Width 13.5 % (11.0-16.0); Retic HGB Equivalent 33.1 pg (30.0-35.0); Reticulocyte Percent 1.4 % (0.5-1.8); Reticulocytes Absolute 0.064 X10*6/uL (0.026-0.095)
[2023-05-24 14:04] LABS: Estimated Average Glucose 88 mg/dL; Hemoglobin A1C 95.4661 umol/L; Hemoglobin A1c % 4.7 %
[2023-05-24 14:26] LABS: Iron 77 mcg/dL (45-160); Percent Iron Saturation 26 % (15-50); Total Iron Binding Capacity 296 mcg/dL (228-428); Unsaturated Iron Binding 219 ug/dL
[2023-05-24 14:39] LABS: Ferritin 139 ng/mL (20-250)
[2023-05-24 14:44] LABS: Folate 15.9 ng/mL (> or = 4.0); Vitamin B12 939 pg/mL (200-900)
[2023-05-25 04:00] LABS: Syphilis Screen Nonreactive (Nonreactive)
[2023-05-25 04:35] LABS: HBS Num1 17.64 mIU/mL (0-7.99); HBc Num1 0.16 S/CO (0.00-0.79); HBsAGNum1 0.48 S/CO (0.00-0.99); HIV AB/AG Nonreactive (Nonreactive); HIV Num 1 0.05 S/CO (0.00-0.99); Hepatitis B Core Antibody Nonreactive (Nonreactive); Hepatitis B Surface Antigen Negative (Negative); ~Hepatitis B Surface Antibody REACTIVE (Nonreactive)
[2023-05-26 15:48] LABS: HCV Log PCR <1.18 NOT DETECTED Log IU/mL (NOT DETECTED); HepC Viral Load <15 NOT DETECTED IU/mL (NOT DETECTED)
== END 2023-05-24 11:08 | disposition home or self-care (01) ==
LOC: HO.HHCL 11:07
PROVIDERS: Visit Provider Emergency Medicine
DX: Z11.4 Encounter for screening for human immunodeficiency virus [HIV] (principal); B18.2 Chronic viral hepatitis C
CPT/HCPCS: 36415; 82607; 82728; 82746; 83036; 83540; 85025; 85045; 86704; 86706; 86780; 87340; 87389; 87522

== ENCOUNTER 2023-06-07 07:47 | Inpatient (IN) | payer OTHER, MEDICAID, SELFPAY ==
--- NOTE | ~2023-06-07 | CT_ITS ---
EXAMINATION: CT SOFT TISSUE NECK WITH CONTRAST CLINICAL INFORMATION: Abscess in the neck. Intravenous drug abuse. COMPARISON: Soft tissue neck ultrasound 06/07/2023. TECHNIQUE: Following the intravenous administration of 60 mL of Omnipaque 350 intravenous contrast, helical imaging was performed in the axial plane with generation of coronal and sagittal reformatted images. This CT examination was performed using dose optimization techniques as appropriate, variously including the following: *Automated exposure control *Adjustment of mA and/or kV according to patient size (this includes techniques or standardized protocols for targeted exams where dose is matched to indication/reason for exam; i.e. extremities or head) *Use of iterative reconstruction technique DLP: 382 mGy-cm FINDINGS: There is extensive stranding visualized within the superficial subcutaneous soft tissues of the left anterior neck and a possible peripherally enhancing 0.7 cm fluid collection at the surface of the left sternocleidomastoid muscle which contains a small focus of gas best visualized on axial image 247 of 401 series 3 consistent with a small abscess. There are multiple enlarged likely reactive cervical lymph nodes. No evidence of septic thrombophlebitis. Foramina mucosal spaces are symmetric. Parapharyngeal and retromaxillary fat is preserved. Fire Control Assistant spaces are symmetric. The parotid and submandibular glands are normal. The tongue base and epiglottis are normal. Preepiglottic fat is preserved. Glottic and subglottic airways are patent. The thyroid gland is normal and the remainder of the visualized visceral soft tissues are normal. Lung apices are clear. Aortic arch apex is unremarkable. Cervical carotid and vertebral arteries are grossly patent. No acute osseous finding. Grossly no worrisome lytic or blastic osseous lesion within the [id number] of this examination. Grossly no spinal canal compromise. The skull base is intact. No mastoid or middle ear effusion. Moderate paranasal sinus disease primarily affecting the left maxillary sinus and left anterior ethmoid air cells. CT/CT soft tissue neck w IV con IMPRESSION: There is cellulitis within the superficial subcutaneous soft tissues of the left anterior neck and a possible 0.7 cm abscess at the surface of the left sternocleidomastoid muscle. There are multiple enlarged likely reactive cervical lymph nodes. No evidence of septic thrombophlebitis. Moderate paranasal sinus disease primarily affecting the left maxillary sinus and left anterior ethmoid air cells.
--- NOTE | ~2023-06-07 | US_ITS ---
EXAMINATION: US SOFT TISSUE NECK CLINICAL INFORMATION: Bilateral neck pain. COMPARISON: None available. TECHNIQUE: Ultrasound of bilateral neck level 3 was performed.. FINDINGS: There is mild fluid collections seen in the painful area of left neck measuring 0.6 cm deep to the skin. It measures approximately 2.5 x 0.5 x 1.6 cm. Similar heterogeneous area seen in right neck measuring 1.2 x 0.3 x 1.2 cm and 0.4 cm deep. There is surrounding increased vascularity US/US soft tiss head and/or neck IMPRESSION: Abnormal soft tissue fluid collection in bilateral neck level 3 and level for area likely bilateral small abscesses and reactionary fluid collection. These findings could be related to patient's history of IVDA.
[2023-06-07 07:56] VITALS: BP 125/76; PULSE 64; RESP 18; TEMP 36.6; O2SAT 96; BMI 31.9
--- NOTE | 2023-06-07 08:17 | PC.NURSE ---
Patient arrived to behavior health pod and changed into hospital attire. Urine specimen obtained and personal belongings locked in locker. Patient reports he wants to kill himself and needs help. Stating he wants to blow his veins out . Denies etoh but reports last using a lot of drugs a few days ago. States he does not know what those drugs where. When asked if he is from this area patient states no that he is from [place] but that his 12 year old son lives here with his parents. States his parents do not allow him to see his son. Patient slow to respond to questions, stating that he wishes he would just blow his head off. Patient with flat affect continually stating that if I do not help him he will kill himself in the parking lot. Denies HI but states that he has multiple plans to kill himself but an intention overdone would be his plan of choice. Provided with food and fluids, resting comfortably on bed with eyes closed at this time.
[2023-06-07 08:21] LABS: Appearance Urine Clear; Color Urine Dark Yellow; Glucose Urine UA Negative (Negative); Leukocyte Esterase Urine Negative (Negative); Nitrite Urine Negative (Negative); Specific Gravity - Urine >= 1.030 (1.005-1.025); Urine Blood Negative (Negative); Urine Ketones Negative (Negative); Urine Protein Trace mg/dL (Neg-Trace)
--- NOTE | 2023-06-07 08:25 | ED.PSYCH ---
HPI - Psych General Chief Complaint: Psychiatric Symptoms Stated Complaint: Crisis Time Seen by Provider: 06/07/23 07:52 Source: patient Mode of arrival: ambulatory Limitations: no limitations History of Present Illness HPI Narrative: 42 yo m hx of major mepression w/ pscyhosis, cocain use disorder, opiate abuse, presents w/ suicidal ideation and stating I want to blow my veins out . Patient reprots SI thoughts for a while but now wants to act on them. Increasing life stressors. Denies visual, auditory tactile hallucinations. Denies alcohol, tobacco. Patient told the nurse that if we do not help him he is going to come cells in this parking lot. Denies medical complaints at this time. Related Data Home Medications Medication Instructions Recorded Confirmed gabapentin 400 mg capsule 800 mg PO TID 03/01/23 06/07/23 aripiprazole 5 mg tablet 10 mg PO DAILY 06/07/23 06/07/23 Allergies Allergy/AdvReac Type Severity Reaction Status Date / Time No Known Allergies Allergy Verified 03/01/23 11:43 Review of Systems Review of Systems: Constitutional : No Weight loss, No Fever, No Chills, No Fatigue, No Malaise ENT/Mouth : No sore throat, No Rhinorrhea Eyes: No Eye Pain, No Swelling, No Redness Cardiovascular : No Chest Pain, No SOB, No Dyspnea on Exertion, No Orthopnea, No Edema, No Palpitations Respiratory : No Cough, No Sputum, No Wheezing Gastrointestinal : No Nausea, No Vomiting, No Diarrhea, No Constipation, No abdominal Pain, No Hematochezia, No Melena Genitourinary : No Dysuria, No Urinary Frequency, No Hematuria, Musculoskeletal : No joint pain, No Myalgias, No Joint Swelling Skin : No Skin Lesions, No rash Neuro : No Weakness, No Numbness, No Dizziness, No Headache Psych : + Anxiety/Panic, + Depression, + SI All other systems reviewed and are negative Yes all other systems are reviewed and are negative PMFSH Past Medical History Attestation statement: The following information was validated with the patient. Source: old records reviewed and nursing notes reviewed Medical History Cocaine abuse Depression ETOH abuse Social History Social History Household Members: None Housing: Homeless Do you presently have visiting nurse or other home services: No Unable to assess alcohol history related to: Refusing to respond Alcohol intake: current Alcohol type: hard liquor Patient Tobacco Use Status: Current everyday Tobacco user Tobacco use type: Cigarette Cigarette Packs Per Day: 1 Cigarettes Per Day: 20.0 Smoked in Last 30 Days: Yes Second Hand Smoke Exposure: Yes Use of substances other than those prescribed or required for medical reasons: Yes Substance Use Type: Crack/Cocaine Substance Use Type Other:: patient stating he uses all type of drugs Advance Directives: No Advance Directives Information Provided: No service: No Sexual orientation: Straight/Heterosexual Physical Exam Vital Signs: Vital Signs: Last Vital Signs Temp 97.5 F 06/07/23 11:53 Pulse 48 L 06/07/23 11:53 Resp 18 06/07/23 11:53 BP 110/52 L 06/07/23 11:53 Pulse Ox 100 06/07/23 11:53 O2 Del Method Room Air 06/07/23 11:53 BMI result Body Mass Index 31.9 vss Appearance: Alert.? Oriented X3.? No acute distress.? Head: Normocephalic, atraumatic, no step-offs or deformities Eyes: Pupils equal, round and reactive to light.? Neck: track danielle to b/l sides of neck w/ erythema and warmth no fluctuance noted. Patient does have tenderness to palpation overlying the sites. CVS: Normal heart rate and rhythm.? Pulses normal.? Respiratory: No respiratory distress.? Breath sounds normal.? Abdomen: Soft and nontender.? Skin: Skin warm and dry.? Normal skin color.? Normal skin turgor.? Extremities: No lower extremity edema.? No calf ttp. 5/5 strength to bilateral upper and lower extremities Neuro: Oriented X 3.? No motor deficit.? No sensory deficit. CN 2-12 intact Course Reevaluation(s) Reevaluation #1: Abnormal soft tissue fluid collection and bilateral neck level 3 , likely bilateral small abscesses and reactionary fluid collection. Will bring patient over to the main emergency department obtain blood cultures, lactic acid, empirically treat with vancomycin and Zosyn due to history of IV drug abuse. Labs pending. Time: 10:12 Reevaluation #2: CBC appears to be around patient's baseline within normocytic anemia and leukopenia. Chemistry unremarkable. Normal lactic acid. Slightly elevated transaminases likely secondary to substance abuse. UA clean. UA positive fentanyl, benzos and cocaine. There is cellulitis within the superficial subcutaneous soft tissue of the left anterior neck and possible 0.7 cm abscess at the surface of the left sternocleidomastoid muscle. Multiple enlarged cervical lymph nodes likely reactive. No signs of septic thrombophlebitis. Patient will continue treatment vanco and Zosyn, will speak to hospitalist for admission. No signs of airway compromise. I did reach out to surgery Dr. Luo who is currently in the OR and will reach out when he is done. Time: 14:58 Medications Administered Discontinued Medications Generic Name Dose Route Start Last Admin Trade Name Freq PRN Reason Stop Dose Admin Cephalexin HCl 500 mg 06/07/23 09:00 06/07/23 09:16 Cephalexin 500 Mg Capsule PO 500 mg QID [place] Administration Doxycycline Monohydrate 100 mg 06/07/23 09:00 06/07/23 09:16 Doxycycline Monohydrate 100 Mg Capsule PO 100 mg BID [place] Administration Vancomycin HCl 2,000 mg in 500 mls @ 250 mls/hr 06/07/23 10:10 06/07/23 13:21 Vancomycin/Ns IV 06/07/23 12:09 250 mls/hr ONCE ONE Administration Piperacillin Sod/Tazobactam 50 mls @ 100 mls/hr 06/07/23 10:10 06/07/23 13:16 Sod 3.375 gm/ Sodium Chloride IV 06/07/23 10:39 Infused ONCE ONE Infusion Iohexol 60 ml 06/07/23 13:00 06/07/23 13:01 Iohexol 350 Mg/Ml 100 Ml Infus..Btl IV 06/07/23 13:01 60 ml ONCE ONE Administration Medical Decision Making Medical Decision Making [facility] Narrative: [id number] 42-year-old male presents with suicidal ideation and depression for the past few weeks worsening over the past few days. Physical exam track danielle to b/l sides of neck w/ erythema and warmth no fluctuance noted. Patient does have tenderness to palpation overlying the sites. This is likely major depression with severe psychosis, also concerned for polysubstance abuse. Unlikely metabolic derangements. Neck likely cellulitis, unlikely abscess, no signs of threat to airway, necrotizing infection, gangrene. Plan at this time medical clearance evaluation by behavioral health team Differential Diagnosis Differential Diagnoses: The differential diagnosis associated with the presentation includes This is likely major depression with severe psychosis, also concerned for polysubstance abuse. Unlikely metabolic derangements. Neck likely cellulitis, unlikely abscess, no signs of threat to airway, necrotizing infection, gangrene. Admission/Observation Consideration of admission/observation: Escalation of care including admission/observation considered likely Lab Data MDM Lab Attestation statement: I reviewed the patient's lab results. 06/07/23 11:13 06/07/23 11:13 Labs: Lab Results 06/07/23 06/07/23 06/07/23 Range/Units 08:14 08:14 11:11 WBC (4.8-10.8) X10*3/uL RBC (4.60-5.80) X10*6/uL Hgb (14.0-18.0) g/dl Hct (42.0-52.0) % MCV (80.0-98.0) fL MCH (27.0-33.0) pg MCHC (31.0-36.0) g/dl RDW (11.0-16.0) % Plt Count (160-400) X10*3/uL MPV (9.4-12.4) fL Immature Gran % (Auto) (0.0-0.4) % Neut % (Auto) (45-73) % Lymph % (Auto) (20-40) % [place] % (Auto) (2-11) % Eos % (Auto) (0-4) % Baso % (Auto) (0-2) % Lymph # (Auto) (1.2-4.9) X10*3/uL [place] # (Auto) (0.1-1.2) X10*3/uL Eos # (Auto) (0.0-0.4) X10*3/uL Baso # (Auto) (0.0-0.2) X10*3/uL Abs Immat Gran (auto) (0.00-0.03) X10*3/uL Absolute Neuts (auto) (2.0-8.3) x10*3/uL Absolute Nucleated RBC (0.0-0.012) X10*3/uL Nucleated RBC % (auto) (0.0-0.2) /100WBC Sodium (135-145) mmol/L Potassium (3.3-5.1) mmol/L Chloride (96-108) mmol/L Carbon Dioxide (22-29) mmol/L Anion Gap (12-20) BUN (9-16) mg/dL Creatinine (0.5-1.4) mg/dL Estim Creat Clear Calc Estimated GFR Random Glucose (60-115) mg/dL Lactic Acid 0.8 (0.5-2.0) mmol/L Calcium (8.4-10.2) mg/dL Magnesium (1.6-2.6) mg/dL Total Bilirubin (0.0-1.0) mg/dL AST (5-37) U/L ALT (0-40) U/L Alkaline Phosphatase (39-117) U/L Total Protein (6.5-8.0) g/dL Albumin (3.5-5.0) g/dL Urine Color Dark Yellow Urine Appearance Clear Urine pH 6.0 (5.0-9.0) Ur Specific [place] >= 1.030 H (1.005-1.025) Urine Protein Trace (Neg-Trace) mg/dL Urine Glucose (UA) Negative (Negative) mg/dL Urine Ketones Negative (Negative) mg/dL Urine Blood Negative (Negative) Urine Nitrite Negative (Negative) Ur Leukocyte Esterase Negative (Negative) Salicylates (15-30) mg/dL Urine Opiates Screen Not Detected (Not Detect) Urine Fentanyl Screen POSITIVE H (Not Detect) Acetaminophen (<30) mcg/mL Ur Barbiturates Screen Not Detected (Not Detect) Ur Phencyclidine Scrn Not Detected (Not Detect) Ur Amphetamines Screen Not Detected (Not Detect) U Benzodiazepines Scrn POSITIVE H (Not Detect) Urine Cocaine Screen POSITIVE H (Not Detect) U Marijuana (THC) Screen Not Detected (Not Detect) Ethyl Alcohol mg/dL COVID-19 (MARAL) (Negative) COVID-19 Clin Com 06/07/23 06/07/23 06/07/23 Range/Units 11:13 11:13 11:13 WBC 4.5 L (4.8-10.8) X10*3/uL RBC 4.49 L (4.60-5.80) X10*6/uL Hgb 12.4 L (14.0-18.0) g/dl Hct 37.5 L (42.0-52.0) % MCV 83.5 (80.0-98.0) fL MCH 27.6 (27.0-33.0) pg MCHC 33.1 (31.0-36.0) g/dl RDW 12.5 (11.0-16.0) % Plt Count 180 (160-400) X10*3/uL MPV 10.2 (9.4-12.4) fL Immature Gran % (Auto) 0.4 (0.0-0.4) % Neut % (Auto) 67.7 (45-73) % Lymph % (Auto) 18.3 L (20-40) % [place] % (Auto) 8.9 (2-11) % Eos % (Auto) 4.0 (0-4) % Baso % (Auto) 0.7 (0-2) % Lymph # (Auto) 0.8 L (1.2-4.9) X10*3/uL [place] # (Auto) 0.4 (0.1-1.2) X10*3/uL Eos # (Auto) 0.2 (0.0-0.4) X10*3/uL Baso # (Auto) 0.0 (0.0-0.2) X10*3/uL Abs Immat Gran (auto) 0.02 (0.00-0.03) X10*3/uL Absolute Neuts (auto) 3.0 (2.0-8.3) x10*3/uL Absolute Nucleated RBC 0.000 (0.0-0.012) X10*3/uL Nucleated RBC % (auto) 0.0 (0.0-0.2) /100WBC Sodium 141 (135-145) mmol/L Potassium 3.9 (3.3-5.1) mmol/L Chloride 105 (96-108) mmol/L Carbon Dioxide 26 (22-29) mmol/L Anion Gap 14 (12-20) BUN 18 H (9-16) mg/dL Creatinine 0.76 (0.5-1.4) mg/dL Estim Creat Clear Calc 143.1 Estimated GFR > 60 Random Glucose 80 (60-115) mg/dL Lactic Acid (0.5-2.0) mmol/L Calcium 9.3 (8.4-10.2) mg/dL Magnesium 2.2 (1.6-2.6) mg/dL Total Bilirubin 0.9 (0.0-1.0) mg/dL AST 47 H (5-37) U/L ALT 45 H (0-40) U/L Alkaline Phosphatase 96 (39-117) U/L Total Protein 7.8 (6.5-8.0) g/dL Albumin 4.1 (3.5-5.0) g/dL Urine Color Urine Appearance Urine pH (5.0-9.0) Ur Specific [place] (1.005-1.025) Urine Protein (Neg-Trace) mg/dL Urine Glucose (UA) (Negative) mg/dL Urine Ketones (Negative) mg/dL Urine Blood (Negative) Urine Nitrite (Negative) Ur Leukocyte Esterase (Negative) Salicylates < 5.0 L (15-30) mg/dL Urine Opiates Screen (Not Detect) Urine Fentanyl Screen (Not Detect) Acetaminophen < 17 (<30) mcg/mL Ur Barbiturates Screen (Not Detect) Ur Phencyclidine Scrn (Not Detect) Ur Amphetamines Screen (Not Detect) U Benzodiazepines Scrn (Not Detect) Urine Cocaine Screen (Not Detect) U Marijuana (THC) Screen (Not Detect) Ethyl Alcohol < 10 mg/dL COVID-19 (MARAL) (Negative) COVID-19 Clin Com 06/07/23 Range/Units 11:16 WBC (4.8-10.8) X10*3/uL RBC (4.60-5.80) X10*6/uL Hgb (14.0-18.0) g/dl Hct (42.0-52.0) % MCV (80.0-98.0) fL MCH (27.0-33.0) pg MCHC (31.0-36.0) g/dl RDW (11.0-16.0) % Plt Count (160-400) X10*3/uL MPV (9.4-12.4) fL Immature Gran % (Auto) (0.0-0.4) % Neut % (Auto) (45-73) % Lymph % (Auto) (20-40) % [place] % (Auto) (2-11) % Eos % (Auto) (0-4) % Baso % (Auto) (0-2) % Lymph # (Auto) (1.2-4.9) X10*3/uL [place] # (Auto) (0.1-1.2) X10*3/uL Eos # (Auto) (0.0-0.4) X10*3/uL Baso # (Auto) (0.0-0.2) X10*3/uL Abs Immat Gran (auto) (0.00-0.03) X10*3/uL Absolute Neuts (auto) (2.0-8.3) x10*3/uL Absolute Nucleated RBC (0.0-0.012) X10*3/uL Nucleated RBC % (auto) (0.0-0.2) /100WBC Sodium (135-145) mmol/L Potassium (3.3-5.1) mmol/L Chloride (96-108) mmol/L Carbon Dioxide (22-29) mmol/L Anion Gap (12-20) BUN (9-16) mg/dL Creatinine (0.5-1.4) mg/dL Estim Creat Clear Calc Estimated GFR Random Glucose (60-115) mg/dL Lactic Acid (0.5-2.0) mmol/L Calcium (8.4-10.2) mg/dL Magnesium (1.6-2.6) mg/dL Total Bilirubin (0.0-1.0) mg/dL AST (5-37) U/L ALT (0-40) U/L Alkaline Phosphatase (39-117) U/L Total Protein (6.5-8.0) g/dL Albumin (3.5-5.0) g/dL Urine Color Urine Appearance Urine pH (5.0-9.0) Ur Specific [place]ion (1.005-1.025) Urine Protein (Neg-Trace) mg/dL Urine Glucose (UA) (Negative) mg/dL Urine Ketones (Negative) mg/dL Urine Blood (Negative) Urine Nitrite (Negative) Ur Leukocyte Esterase (Negative) Salicylates (15-30) mg/dL Urine Opiates Screen (Not Detect) Urine Fentanyl Screen (Not Detect) Acetaminophen (<30) mcg/mL Ur Barbiturates Screen (Not Detect) Ur Phencyclidine Scrn (Not Detect) Ur Amphetamines Screen (Not Detect) U Benzodiazepines Scrn (Not Detect) Urine Cocaine Screen (Not Detect) U Marijuana (THC) Screen (Not Detect) Ethyl Alcohol mg/dL COVID-19 (MARAL) Negative (Negative) COVID-19 Clin Com See Note Independent Interpretation I performed an independent interpretation of an: CT Scan (CT/CT soft tissue neck w IV con IMPRESSION: There is cellulitis within the superficial subcutaneous soft tissues of the left anterior neck and a possible 0.7 cm abscess at the surface of the left sternocleidomastoid muscle. There are multiple enlarged likely reactive cervical lymph nodes. No evidenc) Radiology Impression Discussion of test interpretation with radiology: I have reviewed the radiologist's reading. Core Measures AMI core measures followed: Yes Measure exclusions: not indicated Procedures Procedure Narrative Procedure Narrative: Patient prepped, under ultrasound guidance, deep IV placed by me, bloods drawn Critical Care Time Critical Care Time Critical Care Time: No Discharge Plan Discharge Clinical Impression: Major depress, sev w/ psych, Suicidal ideation, Cellulitis of neck Patient Disposition: Admitted As Inpatient Prescriptions: No Action gabapentin 400 mg capsule 800 mg PO TID aripiprazole 5 mg tablet 10 mg PO DAILY Interventions: [place]-Suicide Risk Severity Scale Last Done: 06/07/23 08:02
--- NOTE | 2023-06-07 08:28 | PC.NURSE ---
Patient reports receiving sublocade injection last about 2 weeks ago
[2023-06-07 08:34] LABS: Amphetamine Screen Urine Not Detected (Not Detect); Barbiturates, Urine Not Detected (Not Detect); Benzodiazepines Screen Urine POSITIVE (Not Detect); Cannabinoid Screen Urine Not Detected (Not Detect); Cocaine Screen Urine POSITIVE (Not Detect); Opiate Screen Urine Not Detected (Not Detect); Phencyclidine Screen Urine Not Detected (Not Detect)
[2023-06-07 08:43] LABS: Fentanyl, urine POSITIVE (Not Detect)
[2023-06-07] MEDS: Doxycycline Monohydrate 100 MG CAPSULE PO (09:16)
[2023-06-07] MEDS: cephALEXin 500 MG CAPSULE PO (09:16)
--- NOTE | 2023-06-07 10:24 | PC.NURSE ---
Ultrasound results reviewed by PA, moved to main ER.
--- NOTE | 2023-06-07 10:55 | PC.NURSE ---
Addendum entered by Tali Guzmán 06/07/23 11:51: dr thomas started an ultrasound iv in the left upper/bicept area Original Note: this rn attempted iv access but unable to gait it, spoke to Halina SANTANA in regards to obtaining a access with ultra sound, pt is a hard stick and is not allowing to attempt an access in his foot, states he needs ultrasound guided one. pt keeps making statements that he wants to kill himself pt does have visible hard/red/tender circles on both sided of the neck, pt is also quite sleepy but arousable to voice command, pt states using heroin a couple of days ago and did inject in the neck area
[2023-06-07 11:24] LABS: MANUAL DIFF FLAG NO
[2023-06-07 11:31] LABS: Basophils Percent Auto 0.7 % (0-2); Eosinophils Absolute Auto 0.2 X10*3/uL (0.0-0.4); Hematocrit 37.5 % (42.0-52.0); Hemoglobin 12.4 g/dl (14.0-18.0); Imm Gran Abs Auto 0.02 X10*3/uL (0.00-0.03); Imm Gran Pct Auto 0.4 % (0.0-0.4); Lymphocytes Absolute Auto 0.8 X10*3/uL (1.2-4.9); Lymphocytes Percent Auto 18.3 % (20-40); Mean Corpuscular HGB Conc 33.1 g/dl (31.0-36.0); Mean Corpuscular Hemoglobin 27.6 pg (27.0-33.0); Mean Corpuscular Volume 83.5 fL (80.0-98.0); Mean Platelet Volume 10.2 fL (9.4-12.4); Monocytes Absolute Auto 0.4 X10*3/uL (0.1-1.2); Monocytes Percent Auto 8.9 % (2-11); Neutrophils Percent Auto 67.7 % (45-73); Platelet Count 180 X10*3/uL (160-400); Red Blood Count 4.49 X10*6/uL (4.60-5.80); Red Cell Distribution Width 12.5 % (11.0-16.0); White Blood Count 4.5 X10*3/uL (4.8-10.8)
[2023-06-07 11:38] LABS: Lactic Acid 0.8 mmol/L (0.5-2.0)
[2023-06-07 11:38] LABS: COVID-19 Test Negative (Negative); IDNOW Serial# 08D9AD1C
[2023-06-07] MEDS: Piperacillin Sodium/Tazobactam 3.375 GM in 0.9 % Sodium Chloride 50 ML IV (11:39)
[2023-06-07 11:50] LABS: Acetaminophen LAB < 17 mcg/mL (<30); Alanine Aminotransferase 45 U/L (0-40); Albumin Level 4.1 g/dL (3.5-5.0); Alkaline Phosphatase 96 U/L (39-117); Anion Gap 14 (12-20); Aspartate Amino Transferase 47 U/L (5-37); Bilirubin Total 0.9 mg/dL (0.0-1.0); Blood Urea Nitrogen 18 mg/dL (9-16); Calcium 9.3 mg/dL (8.4-10.2); Carbon Dioxide 26 mmol/L (22-29); Chloride 105 mmol/L (96-108); Creatinine Clr Calc Pharmacy 143.1; Estimated Glomerular Filt Rate > 60; Ethanol < 10 mg/dL; Glucose Random 80 mg/dL (60-115); Magnesium 2.2 mg/dL (1.6-2.6); Potassium 3.9 mmol/L (3.3-5.1); Salicylate < 5.0 mg/dL (15-30); Sodium 141 mmol/L (135-145); Total Protein 7.8 g/dL (6.5-8.0)
[2023-06-07 11:53] VITALS: BP 110/52; PULSE 48; RESP 18; TEMP 36.4; O2SAT 100
--- NOTE | 2023-06-07 12:30 | PC.NURSE ---
iv line infiltrated, dr thomas aware
--- NOTE | 2023-06-07 12:37 | PC.NURSE ---
dr thomas got another iv in the right upper arm with ultrasound
[2023-06-07] MEDS: iohexoL 350 MG/ML 100 ML INFUS..BTL 60 ML IV (13:01)
--- NOTE | 2023-06-07 13:11 | PHA.MEDREC ---
Pharmacy Consult ? Medication Reconciliation Pharmacy has completed the medication reconciliation. Spoke to patient to confirm meds. Patient states they were recently changed from abilify 5mg to abilify 10mg daily.
[2023-06-07] MEDS: vancomycin/NS 2,000 MG/500 ML PLAST..BAG 250 MG IV (13:21)
--- NOTE | 2023-06-07 13:54 | PHA.PROG ---
Admission Date/Time: Indication: other Weight in k.254 kg Adjusted body weight in K.142 [place] body weight in K.849 Obesity Dosing Indication % IBW: obese Serum Creatinine - Last 168 Hours 06/07/23 11:13 Creatinine 0.76 Estimated CrCl and GFR - Last 168 Hours 06/07/23 11:13 Estim Creat Clear Calc 143.1 Estimated GFR > 60 Vancomycin Loading Dose: 2000 mg Current Vancomycin Dosing Regimen: 1250 mg Q12H Vancomycin Monitoring using AUC goal of 400 - 600 range with trough as surrogate marker: 440 Date and Time for next Vancomycin Level to be drawn: 06/08 @1100 Pharmacist Comments on Vancomycin Plan: Vancomycin dosing will take advantage of [employer] as a clinical decision support tool that uses Bayesian modeling to calculate individual patient's pharmacokinetic parameters and forecast the patient's drug concentration time course with the target goal AUC 24 range of 400 - 600 mg/L/hr.
--- NOTE | 2023-06-07 15:37 | PC.NURSE ---
pt a&ox3. respirations even and unlabored. dr. ann at bedside. pt reports pain in both arms has improved. pt reports thoughts of self harm and that he does not want to live anymore. pt states that he does not mentally feel better. pt requesting food currently. sitter at bedside.
[2023-06-07 15:43] VITALS: BP 114/67; PULSE 66; RESP 16; O2SAT 98
--- NOTE | 2023-06-07 16:18 | P.HPHOSP_ITS ---
History of Present Illness Date of Service: 06/07/23 Chief Complaint: neck pain 42 yo m hx of major mepression w/ pscyhosis, cocain use disorder, opiate abuse, presents w/ suicidal ideation and stating I want to blow my veins out . Patient reprots SI thoughts for a while but now wants to act on them. Increasing life stressors.? Denies visual, auditory tactile hallucinations.? Denies alcohol, tobacco.? Patient told the nurse that if we do not help him he is going to come cells in this parking lot.? Denies medical complaints at this time. When examined by ER physician noted to have exquisite tenderness left lateral neck. Subsequent CT of same showed a fluid collection with cellulitis left anterior cervical region. When further queried, patient states his friend was trying to access for heroin but was unsuccessful. He will be admitted for treatment of cellulitis with small abscess Review of Systems Review of Systems: Denies chest pain Denies shortness of breath Denies nausea vomiting diarrhea Denies fever chills. Admits to thoughts of self-harm PMFSH Medical History Cocaine abuse Depression ETOH abuse Social History Household Members: None Housing: Homeless Do you presently have visiting nurse or other home services: No Unable to assess alcohol history related to: Refusing to respond Alcohol intake: current Alcohol type: hard liquor Patient Tobacco Use Status: Current everyday Tobacco user Tobacco use type: Cigarette Cigarette Packs Per Day: 1 Cigarettes Per Day: 20.0 Smoked in Last 30 Days: Yes Second Hand Smoke Exposure: Yes Use of substances other than those prescribed or required for medical reasons: Yes Substance Use Type: Crack/Cocaine Substance Use Type Other:: patient stating he uses all type of drugs Advance Directives: No Advance Directives Information Provided: No service: No Sexual orientation: Straight/Heterosexual Meds Allergies Allergy/AdvReac Type Severity Reaction Status Date / Time No Known Allergies Allergy Verified 03/01/23 11:43 Active Medications: Current Medications Acetaminophen (Acetaminophen 325 Mg Tablet) 650 mg PO Q6H PRN PRN Reason: Pain, Mild (Pain Scale 1-3) Aripiprazole (Aripiprazole 10 Mg Tablet) 10 mg PO DAILY [place] Enoxaparin Sodium (Enoxaparin Sodium 40 Mg/0.4 Ml Syringe) 40 mg SUBCUT Q24H [place] Gabapentin (Gabapentin 400 Mg Capsule) 800 mg PO TID [place] Vancomycin HCl 1,250 mg/ (Sodium Chloride) 250 mls @ 166.667 mls/hr IV Q12H [place] Piperacillin Sod/Tazobactam (Sod 4.5 gm/ Sodium Chloride) 100 mls @ 200 mls/hr IV Q6H [place] Ondansetron HCl (Ondansetron Hcl 4 Mg/2 Ml Vial) 4 mg IVPUSH Q8H PRN PRN Reason: Nausea and Vomiting Oxycodone HCl (Oxycodone Hcl Immed Release 5 Mg Tablet) 10 mg PO Q4H PRN PRN Reason: Pain, Moderate(Pain Scale 4-6) Pharmacy Consult (Consult Rx Vancomycin Dosing) 1 each MISCELLANE DAILY PRN PRN Reason: Consult order Pharmacy Consult (Consult Rx Vancomycin Dosing) 1 each MISCELLANE DAILY PRN PRN Reason: Consult order Sodium Chloride (0.9 % Sodium Chloride Flush 3 Ml Syringe) 3 ml IVFLUSH QSHIFT [facility] Home Medications Medication Instructions Recorded Confirmed Last Taken Type gabapentin 400 mg capsule 800 mg PO TID 03/01/23 06/07/23 06/06/23 History aripiprazole 5 mg tablet 10 mg PO DAILY 06/07/23 06/07/23 06/06/23 History Physical Exam Vital Signs and Narrative: Vital Signs: Last Vital Signs Temp 97.5 F 06/07/23 11:53 Pulse 66 06/07/23 15:43 Resp 16 06/07/23 15:43 BP 114/67 06/07/23 15:43 Pulse Ox 98 06/07/23 15:43 O2 Del Method Room Air 06/07/23 15:43 BMI result Body Mass Index 31.9 Const: Other: Awake alert quiet minimally interactive Neck: Other: Tender left lateral neck over the border of the sternocleidomastoid with superficial erythema noted. No fluctuance appreciated Resp: Other: Clear to auscultation bilaterally in no rales rhonchi or wheezes Cardio: Other: No S4; positive S1-S2; no S3 murmurs rubs or gallops GI: Other: Soft nontender nondistended normoactive bowel sounds Neuro: Other: Cranial nerves 2-12 grossly intact as tested. Motor is 5/5 all extremities. Sensation is intact Extrem: Other: No edema bilaterally Results Labs 06/07/23 11:13 06/07/23 11:13 Labs: Laboratory Results - last 24 hr 06/07/23 06/07/23 06/07/23 08:14 08:14 11:11 MCV MCH MCHC RDW Plt Count MPV Immature Gran % (Auto) Neut % (Auto) Lymph % (Auto) [place] % (Auto) Eos % (Auto) Baso % (Auto) Lymph # (Auto) [place] # (Auto) Eos # (Auto) Baso # (Auto) Abs Immat Gran (auto) Absolute Neuts (auto) Absolute Nucleated RBC Nucleated RBC % (auto) Anion Gap Estim Creat Clear Calc Estimated GFR Random Glucose Lactic Acid 0.8 Calcium Magnesium Total Bilirubin AST ALT Alkaline Phosphatase Total Protein Albumin Urine Color Dark Yellow Urine Appearance Clear Urine pH 6.0 Ur Specific [place] >= 1.030 H Urine Protein Trace Urine Glucose (UA) Negative Urine Ketones Negative Urine Blood Negative Urine Nitrite Negative Ur Leukocyte Esterase Negative Salicylates Urine Opiates Screen Not Detected Urine Fentanyl Screen POSITIVE H Acetaminophen Ur Barbiturates Screen Not Detected Ur Phencyclidine Scrn Not Detected Ur Amphetamines Screen Not Detected U Benzodiazepines Scrn POSITIVE H Urine Cocaine Screen POSITIVE H U Marijuana (THC) Screen Not Detected Ethyl Alcohol COVID-19 ([facility]) COVID-19 Clin Com 06/07/23 06/07/23 06/07/23 11:13 11:13 11:13 MCV 83.5 MCH 27.6 MCHC 33.1 RDW 12.5 Plt Count 180 MPV 10.2 Immature Gran % (Auto) 0.4 Neut % (Auto) 67.7 Lymph % (Auto) 18.3 L [place] % (Auto) 8.9 Eos % (Auto) 4.0 Baso % (Auto) 0.7 Lymph # (Auto) 0.8 L [place] # (Auto) 0.4 Eos # (Auto) 0.2 Baso # (Auto) 0.0 Abs Immat Gran (auto) 0.02 Absolute Neuts (auto) 3.0 Absolute Nucleated RBC 0.000 Nucleated RBC % (auto) 0.0 Anion Gap 14 Estim Creat Clear Calc 143.1 Estimated GFR > 60 Random Glucose 80 Lactic Acid Calcium 9.3 Magnesium 2.2 Total Bilirubin 0.9 AST 47 H ALT 45 H Alkaline Phosphatase 96 Total Protein 7.8 Albumin 4.1 Urine Color Urine Appearance Urine pH Ur Specific [place] Urine Protein Urine Glucose (UA) Urine Ketones Urine Blood Urine Nitrite Ur Leukocyte Esterase Salicylates < 5.0 L Urine Opiates Screen Urine Fentanyl Screen Acetaminophen < 17 Ur Barbiturates Screen Ur Phencyclidine Scrn Ur Amphetamines Screen U Benzodiazepines Scrn Urine Cocaine Screen U Marijuana (THC) Screen Ethyl Alcohol < 10 COVID-19 ([facility]) COVID-19 Clin Com 06/07/23 11:16 MCV MCH MCHC RDW Plt Count MPV Immature Gran % (Auto) Neut % (Auto) Lymph % (Auto) [place] % (Auto) Eos % (Auto) Baso % (Auto) Lymph # (Auto) [place] # (Auto) Eos # (Auto) Baso # (Auto) Abs Immat Gran (auto) Absolute Neuts (auto) Absolute Nucleated RBC Nucleated RBC % (auto) Anion Gap Estim Creat Clear Calc Estimated GFR Random Glucose Lactic Acid Calcium Magnesium Total Bilirubin AST ALT Alkaline Phosphatase Total Protein Albumin Urine Color Urine Appearance Urine pH Ur Specific [place] Urine Protein Urine Glucose (UA) Urine Ketones Urine Blood Urine Nitrite Ur Leukocyte Esterase Salicylates Urine Opiates Screen Urine Fentanyl Screen Acetaminophen Ur Barbiturates Screen Ur Phencyclidine Scrn Ur Amphetamines Screen U Benzodiazepines Scrn Urine Cocaine Screen U Marijuana (THC) Screen Ethyl Alcohol COVID-19 ([facility]) Negative COVID-19 Clin Com See Note Imaging Radiologist's Impressions: Impressions Head/Neck Ultrasound 06/07/23 09:24 IMPRESSION: Abnormal soft tissue fluid collection in bilateral neck level 3 and level for area likely bilateral small abscesses and reactionary fluid collection. These findings could be related to patient's history of IVDA. Soft Tissue Neck CT 06/07/23 12:59 IMPRESSION: There is cellulitis within the superficial subcutaneous soft tissues of the left anterior neck and a possible 0.7 cm abscess at the surface of the left sternocleidomastoid muscle. There are multiple enlarged likely reactive cervical lymph nodes. No evidence of septic thrombophlebitis. Moderate paranasal sinus disease primarily affecting the left maxillary sinus and left anterior ethmoid air cells. Assessment and Plan (1) Cellulitis of neck: Status: Acute (2) Suicidal ideation: Status: Acute Plan 42-year-old male with a history of IV opiate and cocaine abuse presents originally suicidal ideation. When examined found to have tender left lateral neck; CT consistent with left anterior lateral cellulitis of the neck 1. Left anterior neck cellulitis -vancomycin/Zosyn -oxycodone for pain -id consult 2. Opiate abuse (states on Suboxone however not listed) -addiction Medicine consult 3. Suicidal ideation -one-to-one sitter -with medically acceptable. .. Will bring psych in to for initial evaluation Full code Leandra Requires at least 2 inpatient nights going forward for IV antibiotics to treat left anterior neck cellulitis. This cannot be achieved a lesser acute setting Time Spent With Patient Time: Total time managing care of this patient today ____ minutes. Quality Stroke Does the patient have a stroke diagnosis?: No VTE Prior VTE?: No VTE Risk Level:: Medical - moderate - high VTE Device Contraindication: Treatment Not Indicated VTE Drug Contraindication: N/A - Med Ordered
[2023-06-07] MEDS: Gabapentin 400 MG CAPSULE 800 MG PO ×2 (17:43→20:56)
[2023-06-07] MEDS: ARIPiprazole 10 MG TABLET PO (17:44)
--- NOTE | 2023-06-07 19:08 | PC.NURSE ---
tired to call and give report. nurse will call back.
--- NOTE | 2023-06-07 19:48 | PC.NURSE ---
RN-RN report given to S3.
[2023-06-07] MEDS: Piperacillin Sodium/Tazobactam 4.5 GM in 0.9 % Sodium Chloride 100 ML IV (19:55)
[2023-06-07 20:24] VITALS: BP 129/62; PULSE 68; RESP 18; TEMP 36.2; O2SAT 98
[2023-06-07 20:47] VITALS: BMI 31.8
[2023-06-07] MEDS: 0.9 % Sodium Chloride Flush 3 ML SYRINGE IVFLUSH (20:56)
[2023-06-08] MEDS: Piperacillin Sodium/Tazobactam 4.5 GM in 0.9 % Sodium Chloride 100 ML IV ×4 (00:05→17:43)
[2023-06-08] MEDS: vancomycin HCL 1,250 MG in 0.9 % Sodium Chloride 250 ML 166.67 MG IV (00:18)
[2023-06-08 05:23] VITALS: BP 122/58; RESP 16; TEMP 36.1; O2SAT 96
[2023-06-08 07:12] VITALS: BP 136/68; PULSE 65; RESP 20; TEMP 36.4; O2SAT 99
[2023-06-08 07:13] LABS: MANUAL DIFF FLAG NO
[2023-06-08 07:17] LABS: Basophils Percent Auto 0.9 % (0-2); Eosinophils Absolute Auto 0.2 X10*3/uL (0.0-0.4); Hematocrit 39.5 % (42.0-52.0); Hemoglobin 12.9 g/dl (14.0-18.0); Lymphocytes Percent Auto 29.8 % (20-40); Mean Corpuscular HGB Conc 32.7 g/dl (31.0-36.0); Mean Corpuscular Hemoglobin 27.9 pg (27.0-33.0); Mean Corpuscular Volume 85.5 fL (80.0-98.0); Mean Platelet Volume 10.6 fL (9.4-12.4); Monocytes Absolute Auto 0.4 X10*3/uL (0.1-1.2); Monocytes Percent Auto 13.2 % (2-11); Neutrophils Absolute Auto 1.6 x10*3/uL (2.0-8.3); Neutrophils Percent Auto 50.1 % (45-73); Platelet Count 171 X10*3/uL (160-400); Red Blood Count 4.62 X10*6/uL (4.60-5.80); Red Cell Distribution Width 12.5 % (11.0-16.0); White Blood Count 3.2 X10*3/uL (4.8-10.8)
[2023-06-08 07:35] LABS: Alanine Aminotransferase 40 U/L (0-40); Albumin Level 3.8 g/dL (3.5-5.0); Alkaline Phosphatase 89 U/L (39-117); Anion Gap 11 (12-20); Aspartate Amino Transferase 34 U/L (5-37); Bilirubin Total 0.6 mg/dL (0.0-1.0); Blood Urea Nitrogen 17 mg/dL (9-16); Calcium 9.2 mg/dL (8.4-10.2); Carbon Dioxide 27 mmol/L (22-29); Chloride 109 mmol/L (96-108); Estimated Glomerular Filt Rate > 60; Glucose Fasting 96 mg/dL (60-99); Potassium 3.7 mmol/L (3.3-5.1); Sodium 143 mmol/L (135-145); Total Protein 7.1 g/dL (6.5-8.0)
[2023-06-08] MEDS: Gabapentin 400 MG CAPSULE 800 MG PO ×3 (09:08→20:20)
[2023-06-08] MEDS: 0.9 % Sodium Chloride Flush 3 ML SYRINGE IVFLUSH ×3 (09:08→20:16)
[2023-06-08] MEDS: ARIPiprazole 10 MG TABLET PO (09:08)
[2023-06-08 11:01] LABS: Vancomycin Random 11.5 mcg/mL (15-20)
--- NOTE | 2023-06-08 11:08 | HE.PHANOTE ---
Re: vanco dosing Random level today 11.5. Only 2 doses given but expected trough only 12.2 with this dosing regimen so will increase to 1500 q12 and recheck level 06/09 @1000 to ensure appropriate dosing. Expected auc 546 with trough 14.5 on new regimen.
[2023-06-08] MEDS: vancomycin HCL 1,500 MG in 0.9 % Sodium Chloride 500 ML 333.33 MG IV (12:30)
--- NOTE | 2023-06-08 14:52 | P.PNIM_ITS ---
Subjective Subjective Date of Service: 06/08/23 Interval History: Notes some improvement today however refining still operator when turns neck Review of Systems Denies chest pain Denies shortness of breath Denies nausea vomiting diarrhea Denies fever chills. Admits to thoughts of self-harm Physical Exam Vital Signs: Vital Signs: Last Vital Signs Temp 97.6 F 06/08/23 07:12 Pulse 65 06/08/23 07:12 Resp 20 06/08/23 07:12 BP 136/68 06/08/23 07:12 Pulse Ox 99 06/08/23 07:12 O2 Del Method Room Air 06/08/23 07:12 BMI result Body Mass Index 31.8 Const: Other: Awake alert quiet minimally interactive Neck: Other: Tender left lateral neck over the border of the sternocleidomastoid with superficial erythema noted. No fluctuance appreciated Resp: Other: Clear to auscultation bilaterally in no rales rhonchi or wheezes Cardio: Other: No S4; positive S1-S2; no S3 murmurs rubs or gallops GI: Other: Soft nontender nondistended normoactive bowel sounds Neuro: Other: Cranial nerves 2-12 grossly intact as tested. Motor is 5/5 all extremities. Sensation is intact Extrem: Other: No edema bilaterally Objective Data Active Medications Acetaminophen (Acetaminophen 325 Mg Tablet) 650 mg PO Q6H PRN PRN Reason: Pain, Mild (Pain Scale 1-3) Aripiprazole (Aripiprazole 10 Mg Tablet) 10 mg PO DAILY [facility] Last Admin: 06/08/23 09:08 Dose: 10 mg Documented By: MARTIN Enoxaparin Sodium (Enoxaparin Sodium 40 Mg/0.4 Ml Syringe) 40 mg SUBCUT Q24H [facility] Last Admin: 06/07/23 17:46 Dose: Not Given Documented By: LUCILA Non-Admin Reason: Patient Refused Comments: after explaing the risks to the pt, the pt refused. Gabapentin (Gabapentin 400 Mg Capsule) 800 mg PO TID [facility] Last Admin: 06/08/23 09:08 Dose: 800 mg Documented By: MARTIN Piperacillin Sod/Tazobactam (Sod 4.5 gm/ Sodium Chloride) 100 mls @ 200 mls/hr IV Q6H [facility] Last Infusion: 06/08/23 12:37 Dose: 0 mls/hr Documented By: MARTIN Vancomycin HCl 1,500 mg/ (Sodium Chloride) 500 mls @ 333.333 mls/hr IV Q12H [facility] Last Infusion: 06/08/23 14:05 Dose: 0 mls/hr Documented By: MARTIN Ondansetron HCl (Ondansetron Hcl 4 Mg/2 Ml Vial) 4 mg IVPUSH Q8H PRN PRN Reason: Nausea and Vomiting Oxycodone HCl (Oxycodone Hcl Immed Release 5 Mg Tablet) 10 mg PO Q4H PRN PRN Reason: Pain, Moderate(Pain Scale 4-6) Pharmacy Consult (Consult Rx Vancomycin Dosing) 1 each MISCELLANE DAILY PRN PRN Reason: Consult order Pharmacy Consult (Consult Rx Vancomycin Dosing) 1 each MISCELLANE DAILY PRN PRN Reason: Consult order Sodium Chloride (0.9 % Sodium Chloride Flush 3 Ml Syringe) 3 ml IVFLUSH QSHIFT [facility] Last Admin: 06/08/23 09:08 Dose: 3 ml Documented By: MARTIN Labs 06/08/23 06:06 06/08/23 06:06 Labs: Laboratory Results - last 24 hr 06/08/23 06/08/23 06/08/23 06:06 06:06 10:36 MCV 85.5 MCH 27.9 MCHC 32.7 RDW 12.5 Plt Count 171 MPV 10.6 Immature Gran % (Auto) 0.0 Neut % (Auto) 50.1 Lymph % (Auto) 29.8 [place] % (Auto) 13.2 H Eos % (Auto) 6.0 H Baso % (Auto) 0.9 Lymph # (Auto) 1.0 L [place] # (Auto) 0.4 Eos # (Auto) 0.2 Baso # (Auto) 0.0 Abs Immat Gran (auto) 0.00 Absolute Neuts (auto) 1.6 L Absolute Nucleated RBC 0.000 Nucleated RBC % (auto) 0.0 Anion Gap 11 L Estim Creat Clear Calc 153.0 Estimated GFR > 60 Fasting Glucose 96 Calcium 9.2 Total Bilirubin 0.6 AST 34 ALT 40 Alkaline Phosphatase 89 Total Protein 7.1 Albumin 3.8 Random Vancomycin 11.5 L Microbiology Microbiology Results: Microbiology 06/07/23 11:12 Blood Culture - Preliminary Blood - Venous No growth after 24 hours. 06/07/23 11:12 Blood Culture - Preliminary Blood - Venous No growth after 24 hours. Assessment and Plan (1) Cellulitis of neck: Status: Acute (2) Opiate abuse, episodic: Status: Acute Plan 42-year-old male with a history of IV opiate and cocaine abuse presents origin ally suicidal ideation. When examined found to have tender left lateral neck; CT consistent with left anterior lateral cellulitis of the neck 1. Left anterior neck cellulitis -vancomycin/Zosyn (2) -oxycodone for pain. .. Good control -will continue IV antibiotics pending negative blood cultures and switch to p.o. 2. Opiate abuse (states on Suboxone however not listed) -addiction Medicine consult 3. Suicidal ideation -one-to-one sitter -discussed with patient today. States he is desperate to quit using that is what prompted the suicidal talk. Await addiction Medicine input. -psych consult Full code Leandra Requires at least 2 inpatient nights going forward for IV antibiotics to treat left anterior neck cellulitis. This cannot be achieved a lesser acute setting Time Spent With Patient Time: Total time managing care of this patient today ____ minutes. Quality Stroke Does the patient have a stroke diagnosis?: No VTE Prior VTE?: No VTE Risk Level:: Medical - moderate - high VTE Device Contraindication: Treatment Not Indicated VTE Drug Contraindication: N/A - Med Ordered
--- NOTE | 2023-06-08 15:42 | MHC.RECOVRN ---
Attempt to make contact with pt, pt sleeping at this time with sitter at bedside. Pt allowed to sleep, plan to f/u with pt at a later time.
--- NOTE | 2023-06-08 15:54 | W.PM.IDCN ---
History of Present Illness Data of Consult Service Date: 06/08/23 Requesting physician: Trevor Cantor Primary Care Provider: None Physician HPI Reason for consult: left facial swelling He presents with left sided facial redness and swelling. He has shot up heroin into external jugular vein. He has facial pain and pain clavicle as well. He has CT showe .7 cm abscess left sternoclavicular muscle. He has suicidal thoughts and uses alcohol and heroin. He is HIV negative and Hepatitis C viral load negative on 05/24/2023. He is not interested in HIV prophylaxis. Review of Systems Review of Systems: Yes all other systems are reviewed and are negative PMFSH Past Medical History Medical History Cocaine abuse Depression ETOH abuse Family History Family history: reviewed and not pertinent Social History Social History Household Members: None Housing: Homeless Do you presently have visiting nurse or other home services: No Unable to assess alcohol history related to: Refusing to respond Alcohol intake: current Alcohol type: hard liquor Patient Tobacco Use Status: Current everyday Tobacco user Tobacco use type: Cigarette Cigarette Packs Per Day: 0.5 Cigarettes Per Day: 10.0 Second Hand Smoke Exposure: No Substance Use Type: Crack/Cocaine, Heroin and Opiates service: No Sexual orientation: Straight/Heterosexual Meds Allergies Allergy/AdvReac Type Severity Reaction Status Date / Time No Known Allergies Allergy Verified 03/01/23 11:43 Active Medications: Current Medications Acetaminophen (Acetaminophen 325 Mg Tablet) 650 mg PO Q6H PRN PRN Reason: Pain, Mild (Pain Scale 1-3) Aripiprazole (Aripiprazole 10 Mg Tablet) 10 mg PO DAILY [facility] Last Admin: 06/08/23 09:08 Dose: 10 mg Enoxaparin Sodium (Enoxaparin Sodium 40 Mg/0.4 Ml Syringe) 40 mg SUBCUT Q24H [facility] Last Admin: 06/07/23 17:46 Dose: Not Given Gabapentin (Gabapentin 400 Mg Capsule) 800 mg PO TID [facility] Last Admin: 06/08/23 15:08 Dose: 800 mg Piperacillin Sod/Tazobactam (Sod 4.5 gm/ Sodium Chloride) 100 mls @ 200 mls/hr IV Q6H [facility] Last Infusion: 06/08/23 12:37 Dose: Infused Vancomycin HCl 1,500 mg/ (Sodium Chloride) 500 mls @ 333.333 mls/hr IV Q12H [facility] Last Infusion: 06/08/23 14:05 Dose: Infused Ondansetron HCl (Ondansetron Hcl 4 Mg/2 Ml Vial) 4 mg IVPUSH Q8H PRN PRN Reason: Nausea and Vomiting Oxycodone HCl (Oxycodone Hcl Immed Release 5 Mg Tablet) 10 mg PO Q4H PRN PRN Reason: Pain, Moderate(Pain Scale 4-6) Pharmacy Consult (Consult Rx Vancomycin Dosing) 1 each MISCELLANE DAILY PRN PRN Reason: Consult order Pharmacy Consult (Consult Rx Vancomycin Dosing) 1 each MISCELLANE DAILY PRN PRN Reason: Consult order Sodium Chloride (0.9 % Sodium Chloride Flush 3 Ml Syringe) 3 ml IVFLUSH QSHIFT [facility] Last Admin: 06/08/23 15:09 Dose: 3 ml Home Medications Medication Instructions Recorded Confirmed Last Taken Type gabapentin 400 mg capsule 800 mg PO TID 03/01/23 06/07/23 06/06/23 History aripiprazole 5 mg tablet 10 mg PO DAILY 06/07/23 06/07/23 06/06/23 History Physical Exam Vital Signs: Vital Signs: Last Vital Signs Temp 97.6 F 06/08/23 07:12 Pulse 65 06/08/23 07:12 Resp 20 06/08/23 07:12 BP 136/68 06/08/23 07:12 Pulse Ox 99 06/08/23 07:12 O2 Del Method Room Air 06/08/23 07:12 BMI result Body Mass Index 31.8 HEENT: Other: redness and swelling left facial area and mild clavicular discomfort Results Labs 06/08/23 06:06 06/08/23 06:06 Labs: Short CBC 06/08/23 Range/Units 06:06 WBC 3.2 L (4.8-10.8) X10*3/uL Hgb 12.9 L (14.0-18.0) g/dl Hct 39.5 L (42.0-52.0) % Plt Count 171 (160-400) X10*3/uL BMP 06/08/23 06:06 Sodium 143 Potassium 3.7 Chloride 109 H Carbon Dioxide 27 BUN 17 H Creatinine 0.71 Calcium 9.2 Liver Function 06/08/23 Range/Units 06:06 Total Bilirubin 0.6 (0.0-1.0) mg/dL AST 34 (5-37) U/L ALT 40 (0-40) U/L Alkaline Phosphatase 89 (39-117) U/L Albumin 3.8 (3.5-5.0) g/dL Microbiology Microbiology Results: Microbiology 06/07/23 11:12 Blood - Venous Blood Culture - Preliminary No growth after 24 hours. 06/07/23 11:12 Blood - Venous Blood Culture - Preliminary No growth after 24 hours. Assessment and Plan (1) Cellulitis of neck: Status: Acute He has possible polymicrobial reji neck injection. There is no MRSA seen so far. (2) Suicidal ideation: Status: Acute Plan Continue Zosyn and Vancomycin for now. If blood cultures negative at 48 hours would stop IV antibiotics and give po Augmentin and Doxycycline for 7 day total. Time Spent With Patient Time: Total time managing care of this patient today ____ minutes.
[2023-06-08 16:00] VITALS: BP 121/74; PULSE 60; RESP 20; TEMP 36.1; O2SAT 99
[2023-06-08] MEDS: oxyCODONE HCl Immed Release 5 MG TABLET 10 MG PO (17:45)
[2023-06-08] MEDS: Enoxaparin Sodium 40 MG/0.4 ML SYRINGE SUBCUT (17:47)
[2023-06-08 20:00] VITALS: BP 121/65; PULSE 61; RESP 18; TEMP 36.1; O2SAT 99
[2023-06-08] MEDS: LORazepam 2 MG/ML VIAL 1 MG IVPUSH (21:04)
[2023-06-08] MEDS: HYDROmorphone HCl 1 MG/ML SYRINGE IVPUSH (21:04)
[2023-06-09] MEDS: Piperacillin Sodium/Tazobactam 4.5 GM in 0.9 % Sodium Chloride 100 ML IV ×5 (00:48→23:52)
[2023-06-09] MEDS: HYDROmorphone HCl 0.5 MG/0.5 ML SYRINGE IV ×2 (02:06→06:12)
[2023-06-09] MEDS: vancomycin HCL 1,500 MG in 0.9 % Sodium Chloride 500 ML 333.33 MG IV (02:08)
[2023-06-09 04:00] VITALS: BP 121/65; PULSE 67; RESP 16; TEMP 36.5; O2SAT 98
[2023-06-09 06:24] LABS: MANUAL DIFF FLAG NO
[2023-06-09 06:38] LABS: Basophils Percent Auto 0.4 % (0-2); Eosinophils Absolute Auto 0.2 X10*3/uL (0.0-0.4); Eosinophils Percent Auto 8.4 % (0-4); Hematocrit 35.2 % (42.0-52.0); Hemoglobin 11.6 g/dl (14.0-18.0); Lymphocytes Absolute Auto 0.9 X10*3/uL (1.2-4.9); Lymphocytes Percent Auto 35.6 % (20-40); Mean Corpuscular Hemoglobin 27.8 pg (27.0-33.0); Mean Corpuscular Volume 84.2 fL (80.0-98.0); Mean Platelet Volume 10.4 fL (9.4-12.4); Monocytes Absolute Auto 0.3 X10*3/uL (0.1-1.2); Monocytes Percent Auto 12.4 % (2-11); Neutrophils Absolute Auto 1.1 x10*3/uL (2.0-8.3); Neutrophils Percent Auto 43.2 % (45-73); Platelet Count 172 X10*3/uL (160-400); Red Blood Count 4.18 X10*6/uL (4.60-5.80); Red Cell Distribution Width 12.2 % (11.0-16.0); White Blood Count 2.5 X10*3/uL (4.8-10.8)
[2023-06-09 06:46] LABS: Alanine Aminotransferase 33 U/L (0-40); Albumin Level 3.3 g/dL (3.5-5.0); Alkaline Phosphatase 81 U/L (39-117); Anion Gap 9 (12-20); Aspartate Amino Transferase 27 U/L (5-37); Bilirubin Total 0.3 mg/dL (0.0-1.0); Blood Urea Nitrogen 14 mg/dL (9-16); Calcium 8.7 mg/dL (8.4-10.2); Carbon Dioxide 27 mmol/L (22-29); Chloride 111 mmol/L (96-108); Estimated Glomerular Filt Rate > 60; Glucose Fasting 125 mg/dL (60-99); Potassium 3.7 mmol/L (3.3-5.1); Sodium 143 mmol/L (135-145); Total Protein 6.2 g/dL (6.5-8.0)
--- NOTE | 2023-06-09 07:06 | PC.NURSE ---
Approximately after 20:00, this RN went to go assess the pt but the pt refused all assessments including the [place]- suicide severity rating scale. Pt was agitated and demanded stronger pain medications. The pt was yelling and uncooperative with care. This RN notified MD Garcia of the situation and came to the pt's bedside. One time dose of IV Dilaudid and IV Ativan was ordered. The pt was medicated per DEC. Will continue to monitor pt's pain level and behavior.
[2023-06-09] MEDS: oxyCODONE HCl Immed Release 5 MG TABLET 10 MG PO (07:09)
[2023-06-09] MEDS: Gabapentin 400 MG CAPSULE 800 MG PO ×3 (07:10→19:31)
[2023-06-09] MEDS: ARIPiprazole 10 MG TABLET PO (07:10)
--- NOTE | 2023-06-09 09:31 | MHC.CM.PN ---
PT IS CURRENTLY HOMELESS BUT PROVIDES NO OTHER DETAILS PT ANSWERS MOST QUESTIONS WITH JOKES, REQUESTING HOUSING AND TEAGUE PT SAYS HE HAS A PCP AT [facility], BUT IS WORRIED HE MAY BE DISCHARGED HE MISSED HIS LAST APPT HE DECLINES TO HAVE AN APPT MADE, BUT REQUESTS THE PCP BE NOTIFIED OF ADMISSION TASK SENT TO [facility] PT SAYS HE WOULD LIKE TO DC WHEN ASKED ABOUT INTEREST IN TREATMENT, HE SAYS HE WOULD BE WILLING TO GO BUT NOT TO [facility] PT LATER COMES TO THE [facility] AND TELLS CM IT IS TIME TO GET CLEAN, I AM SERIOUS, I WILL GO ANYWHERE BUT [facility] . PT IS AWARE A FURNITURE INSTALLER WILL BE MEETING WITH HIM LATER TODAY
[2023-06-09] MEDS: HYDROmorphone HCl 1 MG/ML SYRINGE IVPUSH ×5 (09:43→22:24)
[2023-06-09] MEDS: oxyCODONE HCl Immed Release 15 MG TABLET PO ×3 (10:24→18:40)
[2023-06-09 10:58] LABS: Vancomycin Random 13.4 mcg/mL (15-20)
--- NOTE | 2023-06-09 11:30 | HE.PHANOTE ---
Re: vanco dosing Trough today 13.4 which is slightly higher than pk shows it should be. Changing dose to 1000 mg q8 because it shows expected auc 517 and trough 15.7 in insight. With patient running a little higher than model is showing we may see a trough around 17. Will recheck 06/10 @1000.
--- NOTE | 2023-06-09 11:40 | MHC.RECOVRN ---
In to see pt for consult. Pt appears anxious with an irritable edge at this time, restless, fidgeting. Endorsing 10/10 pain, reports he recently received oxycodone and dilaudid, but angry about dosing and frequency of dosing. States that I'm on subblicade, these meds aren't doing shit . Pt asking if recovery team can find him housing, reports he is chronically homeless. Tonia Mcneil aware of pt pain med concerns.
[2023-06-09] MEDS: vancomycin HCL 1,000 MG in 0.9 % Sodium Chloride 250 ML 270 MG IV ×2 (12:03→19:32)
--- NOTE | 2023-06-09 12:51 | P.PNIM_ITS ---
Subjective Subjective Date of Service: 06/09/23 Interval History: Agitated related to pain management. Next still bothersome. Remains afebrile Review of Systems Denies chest pain Denies shortness of breath Denies nausea vomiting diarrhea Denies fever chills. Admits to thoughts of self-harm Physical Exam Vital Signs: Vital Signs: Last Vital Signs Temp 97.7 F 06/09/23 04:00 Pulse 67 06/09/23 04:00 Resp 16 06/09/23 04:00 BP 121/65 06/09/23 04:00 Pulse Ox 98 06/09/23 04:00 O2 Del Method Room Air 06/09/23 04:00 BMI result Body Mass Index 31.8 Const: Other: Awake alert quiet minimally interactive Neck: Other: Tender left lateral neck over the border of the sternocleidomastoid with super ficial erythema noted. No fluctuance appreciated Resp: Other: Clear to auscultation bilaterally in no rales rhonchi or wheezes Cardio: Other: No S4; positive S1-S2; no S3 murmurs rubs or gallops GI: Other: Soft nontender nondistended normoactive bowel sounds Neuro: Other: Cranial nerves 2-12 grossly intact as tested. Motor is 5/5 all extremities. Sensation is intact Extrem: Other: No edema bilaterally Objective Data Active Medications Aripiprazole (Aripiprazole 10 Mg Tablet) 10 mg PO DAILY [facility] Last Admin: 06/09/23 07:10 Dose: 10 mg Documented By: MARTIN Enoxaparin Sodium (Enoxaparin Sodium 40 Mg/0.4 Ml Syringe) 40 mg SUBCUT Q24H [facility] Last Admin: 06/08/23 17:47 Dose: 40 mg Documented By: MARTIN Gabapentin (Gabapentin 400 Mg Capsule) 800 mg PO TID [facility] Last Admin: 06/09/23 07:10 Dose: 800 mg Documented By: MARTIN Hydromorphone HCl (Hydromorphone Hcl 1 Mg/Ml Syringe) 1 mg IVPUSH Q3H PRN; Protocol PRN Reason: Pain, Severe (Pain Scale 7-10) Last Admin: 06/09/23 09:43 Dose: 1 mg Documented By: MARTIN Piperacillin Sod/Tazobactam (Sod 4.5 gm/ Sodium Chloride) 100 mls @ 200 mls/hr IV Q6H [facility] Last Infusion: 06/09/23 12:48 Dose: 0 mls/hr Documented By: MARTIN Vancomycin HCl 1,000 mg/ (Sodium Chloride) 270 mls @ 270 mls/hr IV Q8H [facility] Last Admin: 06/09/23 12:03 Dose: 270 mls/hr Documented By: MARTIN Ondansetron HCl (Ondansetron Hcl 4 Mg/2 Ml Vial) 4 mg IVPUSH Q8H PRN PRN Reason: Nausea and Vomiting Oxycodone HCl (Oxycodone Hcl Immed Release 15 Mg Tablet) 15 mg PO Q4H PRN PRN Reason: Pain, Moderate(Pain Scale 4-6) Last Admin: 06/09/23 10:24 Dose: 15 mg Documented By: MARTIN Pharmacy Consult (Consult Rx Vancomycin Dosing) 1 each MISCELLANE DAILY PRN PRN Reason: Consult order Pharmacy Consult (Consult Rx Vancomycin Dosing) 1 each MISCELLANE DAILY PRN PRN Reason: Consult order Sodium Chloride (0.9 % Sodium Chloride Flush 3 Ml Syringe) 3 ml IVFLUSH QSHIFT [facility] Last Admin: 06/09/23 09:27 Dose: Not Given Documented By: MARTIN Non-Admin Reason: Patient Refused Labs 06/09/23 05:59 06/09/23 05:59 Labs: Laboratory Results - last 24 hr 06/09/23 06/09/23 06/09/23 05:59 05:59 10:30 MCV 84.2 MCH 27.8 MCHC 33.0 RDW 12.2 Plt Count 172 MPV 10.4 Immature Gran % (Auto) 0.0 Neut % (Auto) 43.2 L Lymph % (Auto) 35.6 [place] % (Auto) 12.4 H Eos % (Auto) 8.4 H Baso % (Auto) 0.4 Lymph # (Auto) 0.9 L [place] # (Auto) 0.3 Eos # (Auto) 0.2 Baso # (Auto) 0.0 Abs Immat Gran (auto) 0.00 Absolute Neuts (auto) 1.1 L Absolute Nucleated RBC 0.000 Nucleated RBC % (auto) 0.0 Anion Gap 9 L Estim Creat Clear Calc 153.0 Estimated GFR > 60 Fasting Glucose 125 H Calcium 8.7 Total Bilirubin 0.3 AST 27 ALT 33 Alkaline Phosphatase 81 Total Protein 6.2 L Albumin 3.3 L Random Vancomycin 13.4 L Microbiology Microbiology Results: Microbiology 06/07/23 11:12 Blood Culture - Preliminary Blood - Venous No growth after 24 hours. 06/07/23 11:12 Blood Culture - Preliminary Blood - Venous No growth after 24 hours. Assessment and Plan (1) Cellulitis of neck: Status: Acute (2) Opiate abuse, episodic: Status: Acute (3) Suicidal ideation: Status: Acute Plan 42-year-old male with a history of IV opiate and cocaine abuse presents originally suicidal ideation. When examined found to have tender left lateral neck; CT consistent with left anterior lateral cellulitis of the neck 1. Left anterior neck cellulitis -vancomycin/Zosyn (3) -increase IV pain meds/oxycodone secondary Suboxone use -will continue IV antibiotics pending negative blood cultures times 48 hours and switch to p.o. 2. Opiate abuse (Suboxone) -addiction Medicine consult 3. Suicidal ideation -one-to-one sitter; section 12 filled out by ER provider. Will need to be cleared by psych when medically acceptable -discussed with patient today. States he is desperate to quit using that is what prompted the suicidal talk. Await addiction Medicine input. -psych consult Full code Leandra Requires ongoing hospitalization secondary to need for IV antibiotics to treat left anterior neck cellulitis Time Spent With Patient Time: Total time managing care of this patient today ____ minutes. Quality Stroke Does the patient have a stroke diagnosis?: No VTE Prior VTE?: No VTE Risk Level:: Medical - moderate - high VTE Device Contraindication: Treatment Not Indicated VTE Drug Contraindication: N/A - Med Ordered
[2023-06-09 15:23] VITALS: BP 179/79; PULSE 61; RESP 20; TEMP 35.7; O2SAT 99
[2023-06-09] MEDS: 0.9 % Sodium Chloride Flush 3 ML SYRINGE IVFLUSH ×2 (18:07→19:30)
[2023-06-09] MEDS: Nicotine Polacrilex 2 MG GUM BUCCAL ×3 (18:10→22:29)
[2023-06-09 20:00] VITALS: BP 147/71; PULSE 70; RESP 20; TEMP 36.4; O2SAT 97
[2023-06-10] MEDS: HYDROmorphone HCl 1 MG/ML SYRINGE IVPUSH ×3 (03:07→09:13)
[2023-06-10] MEDS: vancomycin HCL 1,000 MG in 0.9 % Sodium Chloride 250 ML 270 MG IV (03:56)
[2023-06-10 04:00] VITALS: BP 117/74; PULSE 63; RESP 17; TEMP 36.6; O2SAT 96
[2023-06-10] MEDS: oxyCODONE HCl Immed Release 15 MG TABLET PO ×2 (04:03→08:17)
[2023-06-10] MEDS: Piperacillin Sodium/Tazobactam 4.5 GM in 0.9 % Sodium Chloride 100 ML IV (05:15)
[2023-06-10 05:36] LABS: MANUAL DIFF FLAG NO
[2023-06-10 05:40] LABS: Basophils Percent Auto 0.7 % (0-2); Eosinophils Absolute Auto 0.2 X10*3/uL (0.0-0.4); Eosinophils Percent Auto 8.2 % (0-4); Hemoglobin 11.1 g/dl (14.0-18.0); Imm Gran Abs Auto 0.01 X10*3/uL (0.00-0.03); Imm Gran Pct Auto 0.4 % (0.0-0.4); Lymphocytes Percent Auto 36.8 % (20-40); Mean Corpuscular HGB Conc 32.6 g/dl (31.0-36.0); Mean Corpuscular Volume 85.6 fL (80.0-98.0); Mean Platelet Volume 10.2 fL (9.4-12.4); Monocytes Absolute Auto 0.3 X10*3/uL (0.1-1.2); Neutrophils Absolute Auto 1.2 x10*3/uL (2.0-8.3); Neutrophils Percent Auto 43.9 % (45-73); Platelet Count 193 X10*3/uL (160-400); Red Blood Count 3.97 X10*6/uL (4.60-5.80); Red Cell Distribution Width 12.3 % (11.0-16.0); White Blood Count 2.8 X10*3/uL (4.8-10.8)
[2023-06-10 06:04] LABS: Alanine Aminotransferase 30 U/L (0-40); Albumin Level 3.5 g/dL (3.5-5.0); Alkaline Phosphatase 85 U/L (39-117); Anion Gap 11 (12-20); Aspartate Amino Transferase 24 U/L (5-37); Bilirubin Total 0.2 mg/dL (0.0-1.0); Blood Urea Nitrogen 12 mg/dL (9-16); Calcium 8.9 mg/dL (8.4-10.2); Carbon Dioxide 26 mmol/L (22-29); Chloride 111 mmol/L (96-108); Creatinine Clr Calc Pharmacy 144.9; Estimated Glomerular Filt Rate > 60; Glucose Fasting 148 mg/dL (60-99); Potassium 3.5 mmol/L (3.3-5.1); Sodium 144 mmol/L (135-145); Total Protein 6.6 g/dL (6.5-8.0)
[2023-06-10 07:14] VITALS: BP 114/55; PULSE 60; RESP 18; TEMP 36.4; O2SAT 96
[2023-06-10] MEDS: 0.9 % Sodium Chloride Flush 3 ML SYRINGE IVFLUSH (08:16)
[2023-06-10] MEDS: Gabapentin 400 MG CAPSULE 800 MG PO (08:16)
[2023-06-10] MEDS: ARIPiprazole 10 MG TABLET PO (08:17)
--- NOTE | 2023-06-10 09:40 | PC.NURSE ---
Pt agitated looking for MD and wanting his personal belongings. Wants to leave AMA. ON section 12, stated a lady Dr. haas. Insulted MD with racially motivated statements. security called to intervene with patients behavior.
[2023-06-10 10:33] LABS: Vancomycin Random 11.3 mcg/mL (15-20)
[2023-06-10] MEDS: Nicotine Polacrilex 2 MG GUM BUCCAL (10:41)
--- NOTE | 2023-06-10 10:47 | HE.PHANOTE ---
RE NICHOLAS INCREASE DOSE TO 1250 Q 8H, NEW AUC SUSPECTED 586, TROUGH 17.3. NEXT LEVEL DUE 06/11 @1000 YI
--- NOTE | 2023-06-10 10:51 | PM.DS ---
DS: Providers Provider Date of Service: 06/10/23 Date of admission: 06/07/23 16:10 Date of discharge: 06/10/23 Primary care physician: None Physician Consults: 06/07/23 07:52 Consult to Care Team Stat Comment: Reason for consultation: crisis 06/07/23 16:16 Consult to Infectious Diseases Routine Consulting Provider: [facility] [place] Infectious Disease Reason for consultation: cellulitis Has provider been notified: No 06/08/23 13:42 Addiction Medicine Stat Consulting Provider: Addiction Covering Reason for consultation: PSA Has provider been notified: No 06/10/23 07:10 Consult to Care Team Stat Comment: Reason for consultation: Section 12....eval for level of care.Medically clear DS: Diagnosis Discharge Diagnosis (1) Cellulitis of neck: Status: Acute (2) Opiate abuse, episodic: Status: Acute (3) Suicidal ideation: Status: Acute DS: Summary Hospital Course Hospital Course: 42 yo m hx of major mepression w/ pscyhosis, cocain use disorder, opiate abuse, presents w/ suicidal ideation and stating I want to blow my veins out . Patient reprots SI thoughts for a while but now wants to act on them. Increasing life stressors.? Denies visual, auditory tactile hallucinations.? Denies alcohol, tobacco.? Patient told the nurse that if we do not help him he is going to come cells in this parking lot.? Denies medical complaints at this time.? When examined by ER physician noted to have exquisite tenderness left lateral neck.? Subsequent CT of same showed a fluid collection with cellulitis left anterior cervical region.? When further queried, patient states his friend was trying to access for heroin but was unsuccessful.? He will be admitted for treatment of cellulitis with small abscess. Given patient's direct self-harm statements he was Section 12. Hospital course Patient was admitted to general medical floor with sitter and IV antibiotics was started with vancomycin/Zosyn for neck abscess. Seen in consultation by ID. Abscess not large enough to drain at this time. ID recommendation 48 hours of antibiotics and if cultures negative during same time medically acceptable for DC. On the morning of discharge, he was seen by the care team and felt acceptable for discharge without further interventions. When questioned, he seemed more optimistic and will be staying with his mother until he can get things set up with rehab. He will be discharged to follow-up with PCP and arrange his own 12 step program Time Spent with Patient Time attestation: Total time managing care of this patient today ____ minutes. Discharge coordination time: Greater than 30 minutes Quality: Safe Use of Opioids Does Pt have an Active Cancer Diagnosis on the Problem List?: No Quality: Stroke Does the patient have a stroke diagnosis?: No Physical Exam Vital Signs: Vital Signs: Last Vital Signs Temp 97.6 F 06/10/23 07:14 Pulse 60 06/10/23 07:14 Resp 18 06/10/23 07:14 BP 114/55 L 06/10/23 07:14 Pulse Ox 96 06/10/23 07:14 O2 Del Method Room Air 06/10/23 07:14 BMI result Body Mass Index 31.8 Const: Other: Awake alert quiet minimally interactive Neck: Other: Tender left lateral neck over the border of the sternocleidomastoid with superficial erythema noted. No fluctuance appreciated Resp: Other: Clear to auscultation bilaterally in no rales rhonchi or wheezes Cardio: Other: No S4; positive S1-S2; no S3 murmurs rubs or gallops GI: Other: Soft nontender nondistended normoactive bowel sounds Neuro: Other: Cranial nerves 2-12 grossly intact as tested. Motor is 5/5 all extremities. Sensation is intact Extrem: Other: No edema bilaterally DS: Data Data Completed and Pending Labs on day of discharge: Laboratory Results - last 24 hr 06/09/23 06/10/23 06/10/23 10:30 05:16 05:16 WBC 2.8 L RBC 3.97 L Hgb 11.1 L Hct 34.0 L MCV 85.6 MCH 28.0 MCHC 32.6 RDW 12.3 Plt Count 193 MPV 10.2 Immature Gran % (Auto) 0.4 Neut % (Auto) 43.9 L Lymph % (Auto) 36.8 [place] % (Auto) 10.0 Eos % (Auto) 8.2 H Baso % (Auto) 0.7 Lymph # (Auto) 1.0 L [place] # (Auto) 0.3 Eos # (Auto) 0.2 Baso # (Auto) 0.0 Abs Immat Gran (auto) 0.01 Absolute Neuts (auto) 1.2 L Absolute Nucleated RBC 0.000 Nucleated RBC % (auto) 0.0 Sodium 144 Potassium 3.5 Chloride 111 H Carbon Dioxide 26 Anion Gap 11 L BUN 12 Creatinine 0.75 Estim Creat Clear Calc 144.9 Estimated GFR > 60 Fasting Glucose 148 H Calcium 8.9 Total Bilirubin 0.2 AST 24 ALT 30 Alkaline Phosphatase 85 Total Protein 6.6 Albumin 3.5 Random Vancomycin 13.4 L 06/10/23 09:58 WBC RBC Hgb Hct MCV MCH MCHC RDW Plt Count MPV Immature Gran % (Auto) Neut % (Auto) Lymph % (Auto) [place] % (Auto) Eos % (Auto) Baso % (Auto) Lymph # (Auto) [place] # (Auto) Eos # (Auto) Baso # (Auto) Abs Immat Gran (auto) Absolute Neuts (auto) Absolute Nucleated RBC Nucleated RBC % (auto) Sodium Potassium Chloride Carbon Dioxide Anion Gap BUN Creatinine Estim Creat Clear Calc Estimated GFR Fasting Glucose Calcium Total Bilirubin AST ALT Alkaline Phosphatase Total Protein Albumin Random Vancomycin 11.3 L Preliminary micro results at discharge 06/07/23 11:12 Blood Culture - Preliminary Blood - Venous No growth after 48 hours. 06/07/23 11:12 Blood Culture - Preliminary Blood - Venous No growth after 48 hours. Discharge Plan Discharge Anticipated Discharge Date/Time: 06/10/23 10:44 Patient Disposition: Home, Self-Care Discharge Diagnosis: Cellulitis left anterior neck Referrals: Physician,None [Primary Care Provider] - 1 Week Discharge Medications: New oxycodone 15 mg Tablet 15 mg PO Q4H PRN (Reason: Pain, Moderate(Pain Scale 4-6)) Qty: 15 0RF Rx Instructions: Partial Fill upon patient request. amoxicillin-pot clavulanate 875-125 mg tablet 1 tab PO BID Qty: 28 0RF doxycycline hyclate 100 mg tablet 100 mg PO BID 14 Days Qty: 28 0RF Continued gabapentin 400 mg capsule 800 mg PO TID aripiprazole 5 mg tablet 10 mg PO DAILY Discharge Orders: Discharge Order (Routine); Ordered 06/10/23 Ordered By: Trevor Cnator Diet: Advance to usual diet Activity on Discharge: As tolerated Stand Alone Forms: Patient Portal Discharge page Care Plan Goals: Complete course of Augmentin and doxycycline as prescribed Health Concerns: Avoid IV drug use as well as alcohol Plan of Treatment: Follow-up with PCP next available; find 12 step program Assessment: See discharge summary
--- NOTE | 2023-06-10 11:06 | MHC.CM.PN ---
Addendum entered by Jackie Florian 06/10/23 11:08: BUS PASSES PROVIDED Original Note: PT WILL DC TODAY HE HAS DECLINED REFERRALS FROM RECOVERY TEAM HE WAS CLEARED BY CARE TEAM HE DECLINES TO PARTICIPATE IN DISCUSSION REGARDING DC OPTIONS AND SAYS HE JUST NEEDS TO GET TO THE BANK PT REPORTS HE WOULD BENEFIT FROM BUS PASSES, BUT DOES NOT NEED ANY OTHER CM ASSISTANCE
== END 2023-06-10 11:23 | disposition home or self-care (01) | DRG 383 ==
LOC: HO.ED 15:00 → HO.EDOVER 16:15 → HO.S3 16:31
PROVIDERS: Physician Assistant; Admitting Provider Hospitalist; Emergency Provider Emergency Medicine; Visit Provider Hospitalist
DX: L03.221 Cellulitis of neck (principal); F32.3 Major depressive disorder, single episode, severe with psychotic features; R45.851 Suicidal ideations; F11.20 Opioid dependence, uncomplicated; F14.10 Cocaine abuse, uncomplicated; F17.210 Nicotine dependence, cigarettes, uncomplicated; Z71.6 Tobacco abuse counseling; Z79.899 Other long term (current) drug therapy
CPT/HCPCS: 36415; 70491; 76536; 80053; 80143; 80179; 80202; 80307; 81003; 83605; 83735; 85025; 87040; 87635; 99285; J1170; J1650; J2060; J2543; J3370; J3371; Q9967; S9485

== ENCOUNTER → 2023-06-07 16:10 | Outpatient (BNV) | payer MEDICAID, SELFPAY | PROVIDERS: Admitting Provider Hospitalist; Emergency Provider Emergency Medicine; Visit Provider Internal Medicine | DX: L03.221 Cellulitis of neck (principal); R45.851 Suicidal ideations | CPT/HCPCS: 99222 ==

== ENCOUNTER → 2023-06-07 16:10 | Outpatient (BNV) | payer MEDICAID, SELFPAY | PROVIDERS: Admitting Provider Hospitalist; Emergency Provider Emergency Medicine; Visit Provider Hospitalist | DX: L03.221 Cellulitis of neck (principal); F11.10 Opioid abuse, uncomplicated; R45.851 Suicidal ideations | CPT/HCPCS: 99223; 99233; 99239 ==